=== PATIENT | male | born 1955 | race African-American/Black ===

== ENCOUNTER 2016-08-29 08:33 | Emergency (ER) | payer OTHER ==
--- NOTE | 2016-08-29 08:57 | PDOC ---
History of Present Illness - General History Source: Patient Exam Limitations: No Limitations - History of Present Illness Initial Comments: 08/29/16 10:41 The patient is a 61 year old male, with a significant past medical history of COPD on 2L of NC with permanent tracheostomy due to respiratory failure , who presents to the emergency department with suspected foreign body in his trach. The patient reports cleaning his trach with a wooden Q-tip,, when he withdrew it , he only noticed a portion of it and isnt sure where the rest of it was. The missing portion was approx 4-5 inches long. He denies any difficulties breathing. He denies any recent fevers, chills, headache or dizziness. He denies any recent nausea, vomit, diarrhea or constipation. Allergies: NKA Past surgical history: See HPI Social History: Nonsmoker. Denies EtOH use and recreational drug use. Primary Care Physician: Dr.Chumaceiro Goldberg: Dr. Alvarenga <Tam Conley - Last Filed: 08/29/16 11:43> <Isaias Beltran - Last Filed: 08/30/16 09:12> - General Chief Complaint: Foreign Body (FB) Stated Complaint: SOMETHING STUCK IN THE THROAT Time Seen by Provider: 08/29/16 08:38 Past History <Tam Conley - Last Filed: 08/29/16 11:43> - Past Medical History Anemia: No Asthma: Yes Cancer: No Cardiac Disorders: No CVA: No COPD: Yes CHF: No Dementia: No Diabetes: No Dialysis: No GI Disorders: Yes (LBO) Disorders: Yes (Prostate Enlargement) HTN: No Hypercholesterolemia: No HIV: No Kidney Stones: No Liver Disease: No Suicide Attempt (Hx): No Seizures: No Thyroid Disease: No - Surgical History Abdominal Surgery: Yes (Hernia repair,) Appendectomy: No Cardiac Surgery: No Cholecystectomy: Yes Lung Surgery: No Neurologic Surgery: No Orthopedic Surgery: Yes (R foot fracture repair) - Immunization History Immunization Up to Date: Yes - Psycho/Social/Smoking Cessation Hx Anxiety: No Suicidal Ideation: No Smoking Status: No Smoking History: Never smoked Have you smoked in the past 12 months: No Number of Cigarettes Smoked Daily: 0 Hx Alcohol Use: No Drug/Substance Use Hx: No Substance Use Type: None Hx Substance Use Treatment: No <Isaias Beltran - Last Filed: 08/30/16 09:12> - Past Medical History Allergies/Adverse Reactions: Allergies Allergy/AdvReac Type Severity Reaction Status Date / Time Fish Oil concentrate Allergy Mild Verified 08/29/16 08:38 No Known Drug Allergies Allergy Verified 08/29/16 08:38 shellfish Allergy Uncoded 08/29/16 08:38 Home Medications: Ambulatory Orders Albuterol Sulfate Inhaler - [Ventolin Hfa Inhaler -] 1 - 2 inh PO QID 08/29/16 Meloxicam 0 mg PO DAILY 08/29/16 Potassium Chloride 0 meq PO DAILY 08/29/16 Salmeterol/Fluticasone [Advair 250Mcg/50Mcg -] 1 inh IH DAILY 08/29/16 Tamsulosin HCl [Flomax] 0.4 mg PO DAILY 08/29/16 Respiratory Specific PMHX - Complaint Specific PMHX Angina: No <Isaias Beltran - Last Filed: 08/30/16 09:12> Review of Systems - Review of Systems Able to Perform ROS?: Yes Comments:: 08/29/16 10:42 CONSTITUTIONAL: No reported: Fever, Chills, Diaphoresis, Generalized Weakness, Malaise, Loss of Appetite HEENT: No reported: Rhinorrhea, Nasal Congestion, Throat Pain, Throat Swelling, Difficulty Swallowing, Mouth Swelling, Ear Pain, Eye Pain, Visual Changes CARDIOVASCULAR: No reported: Chest Pain, Syncope, Palpitations, Irregular Heart Rate, Lightheadedness, Peripheral Edema RESPIRATORY: +Cough, possible FB in trach No reported: Shortness of Breath, SOB with Exertion, Orthopnea, Wheezing, Stridor, Hemoptysis GASTROINTESTINAL: No reported: Abdominal pain, Abdominal Distension, Nausea, Vomiting, Diarrhea, Constipation, Melena, Hematochezia GENITOURINARY: No reported: Dysuria, Frequency, Urgency, Hesitancy, Flank Pain, Genital Pain MUSCULOSKELETAL: No reported: Myalgia, Arthralgia, Joint Swelling, Back pain, Neck Pain SKIN: No reported: Rash, Itching, Pallor HEMEATOLOGIC/IMMUNOLOGIC: No reported: Easy Bleeding, Easy Bruising, Lymphadenopathy, Frequent infections ENDOCRINE: No reported: Unexplained Weight Gain, Unexplained Weight Loss, Heat Intolerance, Cold Intolerance NEUROLOGIC: No reported: Headache, Focal Weakness, Paresthesias, Vertigo, Lightheadedness, Unsteady Gait, Seizure, Mental Status Changes, Incontinence PSYCHIATRIC: No reported: Anxiety, Depression <Tam Conley - Last Filed: 08/29/16 11:43> *Physical Exam - Vital Signs Last Vital Signs Temp Pulse Resp BP Pulse Ox 98.9 F 90 22 131/69 99 08/29/16 08:38 08/29/16 08:38 08/29/16 08:38 08/29/16 08:38 08/29/16 08:38 - Physical Exam Comments: 08/29/16 10:43 GENERAL: The patient is awake, alert, and fully oriented, Nontoxic - in no acute distress, obese abdomen HEAD: Normocephalic, atraumatic. EYES: extraocular movements intact, sclera anicteric, conjunctiva clear. ENT: Trach in place, no FB noted, no acute distress NECK: Normal range of motion, supple LUNGS: Breath sounds equal, clear to auscultation bilaterally. No wheezes, no rhonchi, no rales. HEART: Regular rate and rhythm, normal S1 and S2 without murmur, rub or gallop. ABDOMEN: Soft, nontender, normoactive bowel sounds. No guarding, no rebound. . No CVA tenderness EXTREMITIES: Normal range of motion, no edema. No clubbing or cyanosis. No cords , erythema, or tenderness. NEUROLOGICAL: No facial assymetry, Normal speech, PSYCH: Normal mood, normal affect. SKIN: Warm, Dry, normal turgor, <Tam Conley - Last Filed: 08/29/16 11:43> Procedures - Consent Consent obtained: Verbal - Additional Procedures Progress: 08/30/16 09:11 The patients trach was replaced with portex trach due to damage to old trach ( broken balloon and broken attachments) <Isaias Beltran - Last Filed: 08/30/16 09:12> Heart Score/ECG Review - ECG Impressions Comment:: 08/29/16 09:42 Twelve-lead EKG was performed and reviewed by me. There is normal sinus rhythm with a normal rate. Rate of 80 The axis is normal. RBBB LAFB There are no ST or T wave abnormalities. <Isaias Beltran - Last Filed: 08/30/16 09:12> ED Treatment Course - LABORATORY CBC & Chemistry Diagram: 08/29/16 09:10 08/29/16 09:10 - ADDITIONAL ORDERS Additional order review: Laboratory Results 08/29/16 08/29/16 08/29/16 09:10 09:10 09:10 INR 1.06 Sodium 141 Potassium 4.7 Chloride 101 Carbon Dioxide 35 H Anion Gap 5 L BUN 12 D Creatinine 1.0 Creat Clearance w eGFR > 60 Random Glucose 94 D Calcium 8.7 Total Bilirubin 0.3 D AST 21 ALT 19 D Alkaline Phosphatase 71 Total Protein 7.7 Albumin 3.3 L Blood Type Cancelled Antibody Screen Cancelled Spec Expiration Date Cancelled 08/29/16 09:10 RBC 4.72 MCV 93.5 MCHC 31.8 L RDW 15.7 MPV 11.1 Neutrophils % 54.9 Lymphocytes % 30.0 D Monocytes % 10.1 Eosinophils % 4.2 D Basophils % 0.8 <Tam Conley - Last Filed: 08/29/16 11:43> - LABORATORY CBC & Chemistry Diagram: 08/29/16 09:10 08/29/16 09:10 <Isaias Beltran - Last Filed: 08/30/16 09:12> Medical Decision Making - Medical Decision Making 08/29/16 08:57 61y M COPD with hx of respiratory failure with trach on 2L of NC presents with suspected FB in trach. The pt was cleaning his trach this morning when the wooden q tip he was using that he suspected may have broken off in his trach ( was cleaning and when he withdrew it it was broken). The pt endorses some increasing coughing recently but denies any cp, fever/chills. on exam pt has a trach in place, unable to see any fb in his trach. vitals normal. will obtain blood work, soft tissue neck/cxr will d/w dr. alvarenga regarding necessity of CT as pt will likely need a bronch 08/29/16 12:14 08/29/16 13:[address] negative for foreign body. Although a wooden q tip is not radio opaque, i would expect that a 3-4 inch long peice of would be uniquely identifiable. case was d/w dr. Gonzáles - agrees that if the pt is asypmtomatic, not coughing or any respiraotory distress, not hypoxic can d/c with observation at home. If pt was to have increase coughing, sob, fever/chills or other sypmtoms will hav ehim return to the ED for reevaluation and possible bronch. I discussed the physical exam findings, ancillary test results and final diagnoses with the patient. I answered all of the patient's questions. The patient was satisfied with the care received and felt comfortable with the discharge plan and treatment plan. The patient will call their primary care physician within 24 hours to arrange follow-up and will return to the Emergency Department with any new, persistent or worsening symptoms. <Isaias Beltran - Last Filed: 08/30/16 09:12> *DC/Admit/Observation/Transfer - Attestations Scribe Attestion: 08/29/16 10:44 Documentation prepared by Tam Conley, acting as medical assistant float for Isaias Beltran MD. <Tam Conley - Last Filed: 08/29/16 11:43> - Discharge Dispostion Admit: No <Isaias Beltran - Last Filed: 08/30/16 09:12> Diagnosis at time of Disposition: Tracheostomy complication Qualifiers: Tracheostomy complication: unspecified Qualified Code(s): J95.00 - Unspecified tracheostomy complication - Discharge Dispostion Disposition: HOME Condition at time of disposition: Improved - Referrals Referrals: Darrick Pastrana MD [Primary Care Provider] - - Patient Instructions Printed Discharge Instructions: How to Take Care of a Tracheostomy Additional Instructions: Return to the emergency department immediately with ANY new, persistent or worsening symptoms including any cough, shortness of breath, chest pain, fevers or other concerns. You MUST call and follow up with your doctor in 2-3 days for further evaluation of your symptoms. Results were discussed with you. Please make sure your doctor reviews the results of your emergency evaluation. Print Language: CHILEAN
[2016-08-29 08:58] VITALS: BP 131/69; PULSE 90; TEMP 98.9; BMI 45.9
[2016-08-29 09:33] LABS: BASOPHIL 0.8 % (0-2.0); EOSINOPHIL 4.2 % (0-4.5); MCH 29.7 pg (25.7-33.7); MCHC 31.8 g/dl (32.0-35.9); MEAN CELL VOLUME 93.5 fl (80-96); MEAN PLT VOLUME 11.1 fl (7.5-11.1); NEUTROPHILS 54.9 % (42.8-82.8); PLATELET COUNT 105 K/MM3 (134-434); RDW 15.7 % (11.9-15.9); WHITE BLOOD COUNT 6.8 K/mm3 (4.0-10.0)
[2016-08-29 09:47] LABS: INR 1.06 (0.82-1.09); PROTHROMBIN TIME (PATIENT) 11.7 SEC (9.98-11.88)
[2016-08-29 09:58] LABS: ALBUMIN 3.3 g/dl (3.4-5.0); ANION GAP 5 (8-16); CALCIUM 8.7 mg/dL (8.5-10.1); CO2 35 mmol/L (21-32); GLUCOSE,RANDOM 94 mg/dL (74-106); SGPT/ALT 19 U/L (12-78)
[2016-08-29 09:59] LABS: ALK PHOS 71 U/L (45-117); BILIRUBIN,TOTAL 0.3 mg/dL (0.2-1.0); TOT PROT 7.7 g/dl (6.4-8.2)
[2016-08-29 10:01] LABS: SGOT/AST 21 U/L (15-37)
--- NOTE | 2016-08-29 10:24 | EKG ---
Test Reason : Blood Pressure : / mmHG Vent. Rate : 080 BPM Atrial Rate : 080 BPM P-R Int : 154 ms QRS Dur : 110 ms QT Int : 380 ms P-R-T Axes : 059 -68 037 degrees QTc Int : 438 ms NORMAL SINUS RHYTHM RIGHT BUNDLE BRANCH BLOCK LEFT ANTERIOR FASCICULAR BLOCK BIFASCICULAR BLOCK ABNORMAL ECG WHEN COMPARED WITH ECG OF 09-MAY-2015 09:00, PREMATURE VENTRICULAR COMPLEXES ARE NO LONGER PRESENT VENT. RATE HAS INCREASED BY 29 BPM Confirmed by SEBASTIÁN BEST, CHITRA ([id number]) on 08/29/2016 10:24:01 AM Referred By: Confirmed By:CHITRA LOWERY MD
== END 2016-08-29 15:16 | disposition home or self-care (01) ==
LOC: JER 08:33
DX: J95.09 Other tracheostomy complication (principal); J96.90 Respiratory failure, unspecified, unspecified whether with hypoxia or hypercapnia; Z99.81 Dependence on supplemental oxygen
CPT/HCPCS: 36415; 71250-TC; 80053; 85025; 85610; 93005; 93010; 99283-25

== ENCOUNTER 2017-08-09 13:15 | Inpatient (IN) | payer OTHER ==
--- NOTE | 2017-08-09 13:18 | PDOC ---
History of Present Illness - General Stated Complaint: SHORTNESS OF BREATH Time Seen by Provider: 08/09/17 13:18 - History of Present Illness Initial Comments: 08/09/17 14:09 The patient is a 62 year old male with a history of CHF, COPD s/p trach due to respiratory failure who presents for evaluation of SOB. The patient reports a 1 week history of worsening SOB with productive cough associated with subjective fevers and chills prompting his presentation to the ED for further evaluation. Per EMS, the patient was suctioned multiple times with mild improvement in the patient's oxygenation. He otherwise denies fevers, chills, chest pain, nausea, vomiting, abdominal pain, or changes with urination or bowel movements. Past History - Past Medical History Allergies/Adverse Reactions: Allergies Allergy/AdvReac Type Severity Reaction Status Date / Time Fish Oil concentrate Allergy Mild Verified 08/09/17 13:40 No Known Drug Allergies Allergy Verified 08/09/17 13:40 shellfish Allergy Uncoded 08/09/17 13:40 Home Medications: Ambulatory Orders Albuterol Sulfate Inhaler - [Ventolin Hfa Inhaler -] 1 - 2 inh PO QID 08/29/16 Meloxicam 0 mg PO DAILY 08/29/16 Potassium Chloride 0 meq PO DAILY 08/29/16 Salmeterol/Fluticasone [Advair 250Mcg/50Mcg -] 1 inh IH DAILY 08/29/16 Tamsulosin HCl [Flomax] 0.4 mg PO DAILY 08/29/16 Anemia: No Asthma: Yes Cancer: No Cardiac Disorders: No CVA: No COPD: Yes CHF: No Dementia: No Diabetes: No Dialysis: No GI Disorders: Yes (LBO) Disorders: Yes (Prostate Enlargement) HTN: No Hypercholesterolemia: No Kidney Stones: No Liver Disease: No Seizures: No Thyroid Disease: No - Surgical History Abdominal Surgery: Yes (Hernia repair,) Appendectomy: No Cardiac Surgery: No Cholecystectomy: Yes Lung Surgery: No Neurologic Surgery: No Orthopedic Surgery: Yes (R foot fracture repair) - Immunization History Immunization Up to Date: Yes - Suicide/Smoking/Psychosocial Hx Smoking Status: No Smoking History: Never smoked Have you smoked in the past 12 months: No Number of Cigarettes Smoked Daily: 0 Hx Alcohol Use: No Drug/Substance Use Hx: No Substance Use Type: None Hx Substance Use Treatment: No Review of Systems - Review of Systems Comments:: 08/09/17 14:19 Constitutional: Fevers. No fatigue, malaise HEENT: No Rhinorrhea, nasal congestion, visual changes Cardiovascular: No chest pain, syncope, palpitations, lightheadedness Respiratory: SOB, Cough. No Hemoptysis, Gastrointestinal: No Abdominal pain, Nausea, Vomiting, Constipation, Diarrhea, Melena Genitourinary: No Dysuria, Frequency, Urgency, Hesitancy, Hematuria, Flank pain Musculoskeletal: No Myalgia, arthralgia Skin: No rashes, itching, bruising, pallor Neurologic: No Headache, Dizziness, Numbness, Weakness, or Tingling Psychiatric: No Hallucinations. No SI or HI *Physical Exam - Physical Exam Comments: 08/09/17 14:22 General Appearance: Nourished. In Mild Apparent Distress HEENT: EOMI, PATRICIA. No Pharyngeal Erythema, Tonsillar Exudate, Tonsillar Erythema Neck: Trachyostomy in place with purulent sputum production. No Cervical Lymphadenopathy Respiratory/Chest: Diffuse crackles auscultated on exam bilaterally. Cardiovascular: Regular Rhythm, Regular Rate. No Murmur, Gallops, Rubs Gastrointestinal/Abdominal: Normal Bowel Sounds, Soft. No Guarding, Rebound, Tenderness Musculoskeletal: No CVA Tenderness Extremity: Normal Capillary Refill Integumentary: Normal Color, Dry, Warm Neurologic: Fully Oriented, Alert, Normal Mood/Affect, Normal Response, Heart Score/ECG Review #1 ECG reviewed & interpreted by me at: 17:21 (Incomplete RBBB, Left Anterior Fasicular Block) General ECG Interpretation: Sinus Rhythm, Normal Rate, Normal Intervals, No acute ischemic changes ED Treatment Course - LABORATORY CBC & Chemistry Diagram: 08/09/17 15:00 08/09/17 15:15 Medical Decision Making - Medical Decision Making 08/09/17 14:24 The patient is a 62 year old male with a history of CHF, COPD s/p trach due to respiratory failure who presents for evaluation of SOB. Differential includes but is not limited to: Sepsis, Pneumonia, COPD Exacerbation, CHF, Infectious, Metabolic derangement. Given the patient's history and physical exam, we will obtain a cbc, cmp, lactate, vbg, troponin, bnp, ua, blood cultures, chest plain film, ekg to evaluate further for possible etiologies. We will treat with a duoneb here in the ED and the patient was placed on a trach collar with improved O2 saturations. We will continue to monitor and closely reassess. Likely admission. 08/09/17 17:04 CBC is unremarkable. CMP is unremarkable. troponin is elevated to 0.34. BNP is elevated to 209. The patient's troponin and bnp elevations are likely due to demand ischemia. Chest plain film demonstrates pulmonary congestion with a possible left lower lobe infiltrate as read by our radiologist. We discussed the case with Dr. Sen with cardiology who is aware of the case and agrees that the patient's troponin elevation is likely due to demand ischemia. We discussed the case with the hospitalist team who accepted the patient for admission. *DC/Admit/Observation/Transfer Diagnosis at time of Disposition: COPD Acute exacerbation of chronic obstructive airways disease, Chronic diastolic heart failure - Discharge Dispostion Condition at time of disposition: Stable Decision to Admit order: Yes - Referrals Referrals: Darrick Pastrana MD [Primary Care Provider] - - Patient Instructions - Post Discharge Activity
[2017-08-09] MEDS ORDERED: ALBUTEROL SO4 2.5/IPRATROPIUM 0.5 INH SOL 3 ML VIAL.NEB. NEB ONE ×3 (13:26→15:38)
--- NOTE | 2017-08-09 13:40 | PDOC ---
Attending Attestation - ED Attending Attestation I have performed the following: I have examined & evaluated the patient, The case was reviewed & discussed with the resident, I agree w/resident's findings & plan, Exceptions are as noted - HPI HPI: 08/09/17 14:14 The patient is a 62 year old male brought in by EMS, with a significant past medical history of COPD, LBO, prostate enlargement, and asthma, who presents to the emergency department for evaluation of shortness of breath. The patient reports worsening shortness of breath for 1 week. The patient has a chronic trach secondary to COPD. The patient reports a 1 week history of fever, chills , productive cough, and increased secretions. He also notes mild right upper quadrant pain. The patient states his worsening symptoms prompted him to visit the emergency department today. The patient denies chest pain, headache, nausea, vomiting, diarrhea, and constipation. Denies dysuria, frequency, urgency, and hematuria. Allergies: NKDA, Fish oil concentrate, shellfish derived products. Past surgical history: Hernia repair, Cholecystectomy. Social history: No reported cigarette, alcohol, or drug use. <Herberth Gaston - Last Filed: 08/09/17 14:14> - Resident Resident Name: Lavell Morrow - Physicial Exam PE: GENERAL: Awake, alert, and fully oriented, in no acute distress. Intermittent hacking cough. HEAD: No signs of trauma EYES: PERRLA, EOMI, sclera anicteric, conjunctiva clear ENT: Auricles normal inspection, hearing grossly normal, nares patent, oropharynx clear without exudates. Moist mucosa. Tracheostomy in place, however , with damaged piece to R side. NECK: Normal ROM, supple, no lymphadenopathy, JVD, or masses LUNGS: Good air entry B/L, with scattered rhonchi. HEART: Regular rate and rhythm, normal S1 and S2, no murmurs, rubs or gallops ABDOMEN: Soft, nontender, normoactive bowel sounds. No guarding, no rebound. No masses EXTREMITIES: Normal range of motion, no edema. No clubbing or cyanosis. No cords, erythema, or tenderness NEUROLOGICAL: Cranial nerves II through XII grossly intact. Motor and sensation intact. Able to speak when he occludes his trach. SKIN: Warm, Dry, normal turgor, no rashes or lesions noted. - Medical Decision Making Pt with suspected pna, as he has had hacking cough, purulent sputum with copious sputum production requiring more suctioning than usual. Treated with abx. Attempted to change the trach in the ED, as the current one is in poor condition, however, he requires an extra long trach, not in stock at the hospital. D/w ENT, it has to be ordered specially. Trach was temporarily secured by respiratory while awaiting a replacement. Pt counseled that he needs to have a spare at all times, as he could compromise his airway if he needs an emergent replacement and the part has to be ordered. <Becky Braun - Last Filed: 08/13/17 08:39> Attestations - Attestations Documentation prepared by Herberth Gaston, acting as medical certification specialist for Becky Braun MD. <Herberth Gaston - Last Filed: 08/09/17 14:14>
[2017-08-09] MEDS ORDERED: methylPREDNISolone NA SUCC 125 MG/2 ML VIAL IVPUSH ONE (14:51)
[2017-08-09] MEDS ORDERED: CEFTRIAXONE 1 GM in DEXTROSE 5%-WATER - 100 ML IVPB ONE (14:51)
[2017-08-09] MEDS ORDERED: AZITHROMYCIN IVPB 500 MG in DEXTROSE 5%-WATER - 250 ML IVPB ONE (14:51)
[2017-08-09] MEDS: ALBUTEROL SO4 2.5/IPRATROPIUM 0.5 INH SOL 3 ML VIAL.NEB. NEB SCH ×3 (15:05→20:01)
[2017-08-09 15:22] LABS: BASO % 0.4 % (0-2.0); EOS % 1.4 % (0-4.5); HEMATOCRIT 52.5 % (35.4-49); HEMOGLOBIN 16.7 GM/dL (11.7-16.9); LYMPH % 16.6 % (8-40); MCH 30.1 pg (25.7-33.7); MCHC 31.8 g/dl (32.0-35.9); MEAN CELL VOLUME 94.8 fl (80-96); MEAN PLT VOLUME 10.6 fl (7.5-11.1); MONO % 7.8 % (3.8-10.2); NEUT % 73.8 % (42.8-82.8); PLATELET COUNT 135 K/MM3 (134-434); RBC 5.54 M/mm3 (4.00-5.60); RDW 16.9 % (11.9-15.9); WHITE BLOOD COUNT 8.3 K/mm3 (4.0-10.0)
[2017-08-09 15:27] LABS: VENOUS PH 7.29 (7.32-7.42)
[2017-08-09 15:28] LABS: VENOUS PO2 37.9 mmHg (28-48)
[2017-08-09 15:30] LABS: VENOUS PC02 80.1 mmHg (38-52)
[2017-08-09] MEDS ORDERED: AZITHROMYCIN IVPB 250 ML IVPB ONE ×2 (15:38→16:02)
[2017-08-09] MEDS ORDERED: CEFTRIAXONE 1 GM/50 ML BAG ONE ×2 (15:38→15:39)
[2017-08-09] MEDS ORDERED: methylPREDNISolone NA SUCC 125 MG/2 ML VIAL ONE ×2 (15:38→15:39)
[2017-08-09 15:41] LABS: INR 1.09 (0.82-1.09); PROTHROMBIN TIME (PATIENT) 12.3 SEC (9.7-13.0)
[2017-08-09 15:44] LABS: ACTIVATED PTT 34.2 SECONDS (26.9-34.4)
[2017-08-09 15:52] LABS: ALBUMIN 3.4 g/dl (3.4-5.0); ALK PHOS 55 U/L (45-117); ANION GAP 7 (8-16); BILIRUBIN,TOTAL 0.9 mg/dL (0.2-1.0); BLOOD UREA NITROGEN 16 mg/dL (7-18); CALCIUM 9.4 mg/dL (8.5-10.1); CHLORIDE 95 mmol/L (98-107); CO2 36 mmol/L (21-32); CREATININE 1.1 mg/dL (0.7-1.3); GLUCOSE,RANDOM 62 mg/dL (74-106); SGPT/ALT 21 U/L (12-78); SODIUM 138 mmol/L (136-145); TOT PROT 7.9 g/dl (6.4-8.2)
[2017-08-09 15:54] LABS: N-TERMINAL BNP 203.06 pg/ml (5-125)
[2017-08-09 15:55] LABS: SGOT/AST 27 U/L (15-37)
[2017-08-09] MEDS ORDERED: ASPIRIN 81 MG CHEWABLE TABLETS PO ONE (15:59)
[2017-08-09] MEDS ORDERED: ASPIRIN 81 MG CHEWABLE TABLETS ONE (16:20)
[2017-08-09] MEDS ORDERED: FUROSEMIDE 40 MG/4 ML INJECTABLE VIAL IVPUSH ONE (16:43)
--- NOTE | 2017-08-09 16:49 | CON.CARD ---
Consult Consult Specialty:: Cardiology Referred by:: ED Reason for Consultation:: Acute on chronic hypoxic, hypercapneic respiratory failure, demand ischemia - History of Present Illness Chief Complaint: Dyspnea History of Present Illness: Patient is a 62 year old male morbidly obese with history of SUDEEP, COPD currently with chronic trach, diastolic dysfunction presents to the emergency department for evaluation of shortness of breath. The patient reports worsening shortness of breath for 1 week. The patient has a chronic trach secondary to COPD. The patient reports a 1 week history of fever, chills, productive cough, and increased secretions. Denies chest pain or dizziness. Sputum was clear without hemoptysis. - History Source History Provided By: Patient Limitations to Obtaining History: No Limitations - Past Medical History Cardio/Vascular: Yes: CAD, HTN Pulmonary: Yes: Asthma, COPD, O2 Dependent, Previously Intubated, Other ( multiple intubations for respiratory distress thus needed tracheostomy placement due difficult intuabations in past) Gastrointestinal: Yes: Constipation, Diverticulosis Renal/: Yes: Other (BPH) Dermatology: No: Basal Cell, Cellulitis, Eczema, Melanoma, Psoriasis, Squamous Cell, Other - Past Surgical History Past Surgical History: Yes: Cholecystectomy, Hernia Repair - Alcohol/Substance Use Hx Alcohol Use: No History of Substance Use: reports: None - Smoking History Smoking history: Never smoked Have you smoked in the past 12 months: No Aproximately how many cigarettes per day: 0 - Social History ADL: Family Assistance History of Recent Travel: No Home Medications - Allergies Allergies/Adverse Reactions: Allergies Allergy/AdvReac Type Severity Reaction Status Date / Time Fish Oil concentrate Allergy Mild Verified 08/09/17 13:40 No Known Drug Allergies Allergy Verified 08/09/17 13:40 shellfish Allergy Uncoded 08/09/17 13:40 - Home Medications Home Medications: Ambulatory Orders Albuterol Sulfate Inhaler - [Ventolin Hfa Inhaler -] 1 - 2 inh PO QID 08/29/16 Meloxicam 0 mg PO DAILY 08/29/16 Potassium Chloride 0 meq PO DAILY 08/29/16 Salmeterol/Fluticasone [Advair 250Mcg/50Mcg -] 1 inh IH DAILY 08/29/16 Tamsulosin HCl [Flomax] 0.4 mg PO DAILY 08/29/16 Review of Systems - Review of Systems Respiratory: reports: Cough, SOB, Wheezing Vital Signs: Vital Signs Temperature 98.9 F 08/09/17 13:15 Pulse Rate 75 08/09/17 13:15 Respiratory Rate 16 08/09/17 13:15 Blood Pressure 147/87 08/09/17 13:15 O2 Sat by Pulse Oximetry (%) 83 L 08/09/17 13:15 Constitutional: Yes: No Distress, Calm Neck: Yes: Other (Tracheostomy) Respiratory: Yes: Cough, Diminished, Wheezes Gastrointestinal: Yes: Normal Bowel Sounds, Soft, Abdomen, Obese Cardiovascular: Yes: Regular Rate and Rhythm JVD: No Carotid Bruit: No Heart Sounds: Yes: S1, S2 Edema: No - Other Data Labs, Other Data: CBC, BMP 08/09/17 15:00 08/09/17 15:15 INR, PTT INR 1.09 (0.82-1.09) 08/09/17 15:15 Troponin, BNP 08/09/17 08/09/17 15:15 15:15 Troponin I 0.34 H D B-Natriuretic Peptide 203.06 H Cancelled Troponin, BNP 08/09/17 08/09/17 15:15 15:15 Troponin I 0.34 H D B-Natriuretic Peptide 203.06 H Cancelled Imaging - Results Chest X-ray: Report Reviewed (Congestion with left base infiltrate or atelectasis) Problem List - Problems (1) Demand ischemia Code(s): I24.8 - OTHER FORMS OF ACUTE ISCHEMIC HEART DISEASE (2) Acute on chronic respiratory failure with hypoxia and hypercapnia Code(s): J96.21 - ACUTE AND CHRONIC RESPIRATORY FAILURE WITH HYPOXIA; J96.22 - ACUTE AND CHRONIC RESPIRATORY FAILURE WITH HYPERCAPNIA (3) COPD Acute exacerbation of chronic obstructive airways disease Code(s): J44.1 - CHRONIC OBSTRUCTIVE PULMONARY DISEASE W (ACUTE) EXACERBATION (4) CAD (coronary artery disease) Code(s): I25.10 - ATHSCL HEART DISEASE OF [place] CORONARY ARTERY W/O ANG PCTRS Qualifiers: Coronary Disease-Associated Artery/Lesion type: [place] artery [place] vs. transplanted heart: [place] heart Associated angina: without angina Qualified Code(s): I25.10 - Atherosclerotic heart disease of [place] coronary artery without angina pectoris (5) Chronic diastolic heart failure Code(s): I50.32 - CHRONIC DIASTOLIC (CONGESTIVE) HEART FAILURE (6) History of tracheostomy Code(s): Z98.89 - OTHER SPECIFIED POSTPROCEDURAL STATES * DO NOT USE * (7) Obstructive sleep apnea Code(s): G47.33 - OBSTRUCTIVE SLEEP APNEA (ADULT) (PEDIATRIC) Assessment/Plan May 09, 2015 Normal LV size and fxn, mild cLVH, cannot assess valvular pathologies due to poor echo windows 1. Acute on chronic hypoxic, hypercapenic respiratory failure with COPD exacerbation and left base PNA 2. SUDEEP with chronic tracheostomy 3. HTN 4. Diastolic dysfunction 5. Morbid obesity 6. Demand ischemia PLAN: 1. F/u trops to monitor peak 2. BD, abx, steroids, O2 to keep saO2>90%, rest on vent nightly, diuresos as needed 3. Thank you for consultative opportunity
--- NOTE | 2017-08-09 17:45 | PN ---
Teaching Attending Note Name of Resident: Elvin Robertson ATTENDING PHYSICIAN STATEMENT I saw and evaluated the patient. I reviewed the resident's note and discussed the case with the resident. I agree with the resident's findings and plan as documented. SUBJECTIVE: Patient is a 62yo male with hx of tracheo. PRESENTED WITH SHORTNESS OF BREATH AND RIGHT. OBJECTIVE: Vital Signs Temperature 98.9 F 08/09/17 13:15 Pulse Rate 75 08/09/17 13:15 Respiratory Rate 16 08/09/17 13:15 Blood Pressure 147/87 08/09/17 13:15 O2 Sat by Pulse Oximetry (%) 83 L 08/09/17 13:15 CBCD WBC 8.3 K/mm3 (4.0-10.0) 08/09/17 15:00 RBC 5.54 M/mm3 (4.00-5.60) 08/09/17 15:00 Hgb 16.7 GM/dL (11.7-16.9) D 08/09/17 15:00 Hct 52.5 % (35.4-49) H D 08/09/17 15:00 MCV 94.8 fl (80-96) 08/09/17 15:00 MCHC 31.8 g/dl (32.0-35.9) L 08/09/17 15:00 RDW 16.9 % (11.9-15.9) H 08/09/17 15:00 Plt Count 135 K/MM3 (134-434) D 08/09/17 15:00 MPV 10.6 fl (7.5-11.1) 08/09/17 15:00 CMP Sodium 138 mmol/L (136-145) 08/09/17 15:15 Potassium 5.0 mmol/L (3.5-5.1) 08/09/17 15:15 Chloride 95 mmol/L (98-107) L 08/09/17 15:15 Carbon Dioxide 36 mmol/L (21-32) H 08/09/17 15:15 Anion Gap 7 (8-16) L 08/09/17 15:15 BUN 16 mg/dL (7-18) D 08/09/17 15:15 Creatinine 1.1 mg/dL (0.7-1.3) 08/09/17 15:15 Creat Clearance w eGFR > 60 (>60) 08/09/17 15:15 Random Glucose 62 mg/dL (74-106) L D 08/09/17 15:15 Calcium 9.4 mg/dL (8.5-10.1) 08/09/17 15:15 Total Bilirubin 0.9 mg/dL (0.2-1.0) D 08/09/17 15:15 AST 27 U/L (15-37) D 08/09/17 15:15 ALT 21 U/L (12-78) 08/09/17 15:15 Alkaline Phosphatase 55 U/L (45-117) D 08/09/17 15:15 Total Protein 7.9 g/dl (6.4-8.2) 08/09/17 15:15 Albumin 3.4 g/dl (3.4-5.0) 08/09/17 15:15 CARDIAC ENZYMES Troponin I 0.34 ng/ml (0.00-0.05) H D 08/09/17 15:15 Current Medications Generic Name Dose Route Start Last Admin Trade Name Mega PRN Reason Stop Dose Admin Albuterol/Ipratropium 1 amp 08/09/17 15:00 08/09/17 15:05 Duoneb - NEB 08/10/17 03:01 1 amp Q4H ABEL Administration PE: PER RESIDENT'S NOTE CHEST: decreased BS BL, positive for trach.collar Abdomen: RLQ tenderness, BS positive, large abdomen ASSESSMENT AND PLAN: Patient is a 59 year old male with morbid obesity, SUDEEP, COPD, Trach who presents with diarrhea x 2 days , no fever or chills, positive for cough. Abdominal pain for over 1 year with worsening pain the past 2 days # Acute abdominal pain , DDx: appendicitis, adhesions with multiple abdominal surgical scars , C-diff colitis, patient was on Levaquin a week ago, and now presents with diarrhea , stool for cdiff. will start the patient on IV Rocephin and IV flagyl, ordered abdominal CT without contrast , septic w/u ,surgical consult discussed with # Acute COPD/chf diastolic exacerbation Pulmonary consult . nebulizer tx, Solumedrol IV 40mg q6h, Rocephin IV , echo for am #tracheostomy with Fi02 40% tracheo collar # Hx of HTN continue Lasix 40mg # Morbid Obesity DVT Px: heparin
--- NOTE | 2017-08-09 17:45 | HP ---
CHIEF COMPLAINT: SOB PCP: Dr. Pastrana; Cardio Dr. Caballero; Pulm Dr. Alvarenga HISTORY OF PRESENT ILLNESS: 62 y/o M w/PMH of COPD s/p tracheostomy (on 2L home O2), CHF, BPH, asthma presents to the ER with 1 week of worsening SOB, cough w/increased yellow sputum production, and subjective fevers w/diaphoresis. Pt also c/o chest tightness that is non-radiating. He noticed he has been having worsening dyspnea on exertion over this last 1 week as well. He also c/o some edema in LE which is unusual for him. Denies sick contacts or recent travel. He also c/o R sided abd pain for 1 week with diarrhea. Over the last 2 days diarrhea has become watery. He was on 1 week of levaquin 1 month ago for URI. He denies any abx use since then. No change in diet over this period of time. Denies urinary symptoms, blood in stool, EDWARDS. Is ambulatory at baseline and comes from home and lives alone. ER course was notable for: (1) Duonebs, ASA, azithro, ceftriaxone, lasix, solumedrol (2) CXR, EKG (3) Recent Travel: denies PAST MEDICAL HISTORY: COPD s/p tracheostomy, CHF, BPH, asthma PAST SURGICAL HISTORY: Tracheostomy 2007, cholecystectomy, sternum repair, R foot fracture repair Social History: Smoking: denies Alcohol: denies Drugs: denies Family History: n-c Allergies Fish Oil concentrate Allergy (Mild, Verified 08/09/17 13:40) PT COULD NOT PROVIDE FURTHER INFO. No Known Drug Allergies Allergy (Verified 08/09/17 13:40) shellfish Allergy (Uncoded 08/09/17 13:40) HOME MEDICATIONS: Home Medications Medication Instructions Recorded Albuterol Sulfate Inhaler - 1 - 2 inh PO QID 08/29/16 [Ventolin Hfa Inhaler -] Meloxicam 0 mg PO DAILY 08/29/16 Potassium Chloride 0 meq PO DAILY 08/29/16 Salmeterol/Fluticasone [Advair 1 inh IH DAILY 08/29/16 250Mcg/50Mcg -] Tamsulosin HCl [Flomax] 0.4 mg PO DAILY 08/29/16 REVIEW OF SYSTEMS CONSTITUTIONAL: +fever, diaphoresis CARDIOVASCULAR: +chest tightness, heart racing, peripheral edema RESPIRATORY: +cough with increased sputum, yellow in color, dyspnea on exertion , SOB, wheezing Absent: hemoptysis GASTROINTESTINAL: +abd pain, diarrhea Absent: melena, hematochezia GENITOURINARY: Absent: dysuria, frequency NEUROLOGIC: Absent: headache PHYSICAL EXAMINATION Vital Signs - 24 hr 08/09/17 13:15 Temperature 98.9 F Pulse Rate 75 Respiratory 16 Rate Blood Pressure 147/87 O2 Sat by Pulse 83 L Oximetry (%) GENERAL: Awake, alert, and fully oriented, unable to finish complete sentences due to SOB and tracheostomy. HEAD: NC/AT EYES: Pupils equal, round and reactive to light, extraocular movements intact, sclera anicteric. EARS, NOSE, THROAT: Ears normal, nares patent LUNGS: B/L rales HEART: Regular rate and rhythm, normal S1 and S2 without murmur ABDOMEN: Obese, RUQ and RLQ tender to palpation with light palpation. Normoactive BS. LOWER EXTREMITIES: warm, well-perfused. No calf tenderness. Trace pitting edema. PSYCHIATRIC: Cooperative. Good eye contact. Appropriate mood and affect. SKIN: Warm, dry Laboratory Results - last 24 hr 08/09/17 08/09/17 08/09/17 15:00 15:15 15:15 WBC 8.3 RBC 5.54 Hgb 16.7 D Hct 52.5 H D MCV 94.8 MCH 30.1 MCHC 31.8 L RDW 16.9 H Plt Count 135 D MPV 10.6 Absolute Neuts (auto) 6.2 Neutrophils % 73.8 D Lymphocytes % 16.6 D Monocytes % 7.8 Eosinophils % 1.4 Basophils % 0.4 Nucleated RBC % 0 PT with INR 12.30 INR 1.09 PTT (Actin FS) 34.2 D VBG pH 7.29 L POC VBG pCO2 80.1 H* POC VBG pO2 37.9 D Mixed VBG HCO3 37.3 H Sodium Potassium Chloride Carbon Dioxide Anion Gap BUN Creatinine Creat Clearance w eGFR Random Glucose Lactic Acid Calcium Total Bilirubin AST ALT Alkaline Phosphatase Troponin I B-Natriuretic Peptide Total Protein Albumin 08/09/17 08/09/17 08/09/17 15:15 15:15 15:15 WBC RBC Hgb Hct MCV MCH MCHC RDW Plt Count MPV Absolute Neuts (auto) Neutrophils % Lymphocytes % Monocytes % Eosinophils % Basophils % Nucleated RBC % PT with INR INR PTT (Actin FS) VBG pH POC VBG pCO2 POC VBG pO2 Mixed VBG HCO3 Sodium 138 Potassium 5.0 Chloride 95 L Carbon Dioxide 36 H Anion Gap 7 L BUN 16 D Creatinine 1.1 Creat Clearance w eGFR > 60 Random Glucose 62 L D Lactic Acid 1.3 Calcium 9.4 Total Bilirubin 0.9 D AST 27 D ALT 21 Alkaline Phosphatase 55 D Troponin I 0.34 H D B-Natriuretic Peptide 203.06 H Total Protein 7.9 Albumin 3.4 08/09/17 15:15 WBC RBC Hgb Hct MCV MCH MCHC RDW Plt Count MPV Absolute Neuts (auto) Neutrophils % Lymphocytes % Monocytes % Eosinophils % Basophils % Nucleated RBC % PT with INR INR PTT (Actin FS) VBG pH POC VBG pCO2 POC VBG pO2 Mixed VBG HCO3 Sodium Potassium Chloride Carbon Dioxide Anion Gap BUN Creatinine Creat Clearance w eGFR Random Glucose Lactic Acid Calcium Total Bilirubin AST ALT Alkaline Phosphatase Troponin I B-Natriuretic Peptide Cancelled Total Protein Albumin Imaging: CXR: 08/09/17: Congestive changes with possible L base infiltrate or atelectasis w /fluid EKG: NSR w/sinus arrhythmia. Incomplete RBBB. Vent Rate 75. QTc 433 ms. Active Medications Acetaminophen (Tylenol -) 650 mg PO Q6H PRN PRN Reason: PAIN OR FEVER Albuterol/Ipratropium (Duoneb -) 1 amp NEB Q4H [facility] Stop: 08/10/17 03:01 Last Admin: 08/09/17 15:05 Dose: 1 amp Albuterol/Ipratropium (Duoneb -) 1 amp NEB RQID ABEL Furosemide (Lasix Injection -) 40 mg IVPUSH DAILY [facility] Heparin Sodium (Porcine) (Heparin -) 5,000 unit SQ TID ABEL Ceftriaxone Sodium 1 gm/ (Dextrose) 50 mls @ 100 mls/hr IVPB DAILY [facility] Metronidazole (Flagyl 500mg Premixed Ivpb -) 500 mg in 100 mls @ 100 mls/hr IVPB Q8H-IV ABEL Methylprednisolone Sodium Succinate (Solu-Medrol -) 40 mg IVPB Q6H [facility] ASSESSMENT/PLAN: 62 y/o M w/PMH of COPD s/p tracheostomy (on 2L home O2), CHF, BPH, asthma presents to the ER with 1 week of worsening SOB, cough w/increased yellow sputum production, and subjective fevers w/diaphoresis. Admitted for SOB secondary to likely PNA w/superimposed COPD exacerbation and CHF exacerbation. -SOB secondary to likely PNA w/superimposed COPD exacerbation and CHF exacerbation -O2 supplementation to keep O2 sat above 90% -Solumedrol 40 mg q6h -Duonebs -Ceftriaxone 1g IV qd -Echo -Lasix 40 mg IV qd -Pulm consult (Dr. Alvarenga) -tylenol 650 mg po q6h for fever or pain -Acute abd -r/o C diff colitis, acute appendix -pt w/recent abx use (levaquin) -will test for C. Diff -will treat for C. Diff at this time w/flagyl -pt w/exquisitely tender R side of abd -will get non-contrast abd/pelvis CT -NPO except for meds -Surgery consult (Dr. Tapia) -contact precautions for C. Diff -Elevated trops -likely secondary to demand ischemia from hypoxia -EKG with no ST segment changes -trend trops to peak -cardio consulted -DVT ppx -Heparin 5000 units q8h -FEN -no fluids for now w/CHF exacerbation -Monitor electrolytes -NPO -Dispo: Admit to tele Visit type - Emergency Visit Emergency Visit: Yes Care time: The patient presented to the Emergency Department on the above date and was hospitalized for further evaluation of their emergent condition. - New Patient This patient is new to me today: Yes Date on this admission: 08/09/17 - Critical Care Critical Care patient: No Hospitalist Screening - Colonoscopy Questionnaire Colonoscopy Questionnaire: Colonoscopy Questionnaire - Patient: 50 - 75 years old and never had a screening colonoscopy: No History of colon or rectal polyps, or CA: No History of IBD, Crohn's disease or UC: No History of abdominal radiation therapy as a child: No - Relative: 1 with colon or rectal CA, or polyps at age 60 or younger: Unknown Colon or rectal CA diagnosed at age 45 or younger: Unknown Multiple relatives with colon or rectal CA: Unknown - Outcome: Screening Result: Negative Screen
[2017-08-09] MEDS ORDERED: ACETAMINOPHEN 325 MG TABLET (FP) PO PRN (17:47)
[2017-08-09] MEDS ORDERED: VANCOMYCIN 250 MG/5 ML ORAL SOLUTION PO SCH (18:00)
[2017-08-09 19:41] LABS: URINE APPEARANCE CLEAR; URINE BILIRUBIN NEGATIVE (<2.0 mg/dL); URINE BLOOD NEGATIVE (NEGATIVE); URINE COLOR AMBER; URINE GLUCOSE (UA) NEGATIVE (NEGATIVE); URINE KETONE 1+ (NEGATIVE); URINE LEUK ESTERASE NEGATIVE (NEGATIVE); URINE NITRITE NEGATIVE (NEGATIVE)
[2017-08-09 19:44] LABS: URINE PROTEIN 1+ (NEGATIVE)
[2017-08-09 19:52] LABS: EPI CELLS RARE /HPF (FEW); URINE HYALINE CAST 1 /lpf; URINE MUCUS FEW
[2017-08-09] MEDS ORDERED: FUROSEMIDE 40 MG/4 ML INJECTABLE VIAL ONE (20:05)
--- NOTE | 2017-08-09 21:43 | CONSULT ---
Consult Consult Specialty:: Surgery Reason for Consultation:: Abdominal pain - History of Present Illness Chief Complaint: Patient, 62 year old man, with severe Copd, s/p tracheostomy, obesity, c/o chronic abdominal pain, exacerbated in last 2 days. no nausea, no vomiting. - History Source History Provided By: Patient Limitations to Obtaining History: No Limitations - Past Medical History Cardio/Vascular: Yes: CAD, HTN Pulmonary: Yes: Asthma, COPD, O2 Dependent, Previously Intubated, Pulmonary Embolus, Other (multiple intubations for respiratory distress thus needed tracheostomy placement due difficult intuabations in past) Gastrointestinal: Yes: Constipation, Diverticulosis Renal/: Yes: Other (BPH) Dermatology: No: Basal Cell, Cellulitis, Eczema, Melanoma, Psoriasis, Squamous Cell, Other - Past Surgical History Past Surgical History: Yes: Cholecystectomy, Hernia Repair - Alcohol/Substance Use Hx Alcohol Use: No History of Substance Use: reports: None - Smoking History Smoking history: Never smoked Have you smoked in the past 12 months: No Aproximately how many cigarettes per day: 0 - Social History ADL: Family Assistance History of Recent Travel: No Home Medications - Allergies Allergies/Adverse Reactions: Allergies Allergy/AdvReac Type Severity Reaction Status Date / Time Fish Oil concentrate Allergy Mild Verified 08/09/17 13:40 No Known Drug Allergies Allergy Verified 08/09/17 13:40 shellfish Allergy Uncoded 08/09/17 13:40 - Home Medications Home Medications: Ambulatory Orders Albuterol Sulfate Inhaler - [Ventolin Hfa Inhaler -] 1 - 2 inh PO QID 08/29/16 Meloxicam 0 mg PO DAILY 08/29/16 Potassium Chloride 0 meq PO DAILY 08/29/16 Salmeterol/Fluticasone [Advair 250Mcg/50Mcg -] 1 inh IH DAILY 08/29/16 Tamsulosin HCl [Flomax] 0.4 mg PO DAILY 08/29/16 Review of Systems - Review of Systems Gastrointestinal: reports: Diarrhea Physical Exam Vital Signs: Vital Signs Temperature 98.9 F 08/09/17 13:15 Pulse Rate 83 08/09/17 19:56 Respiratory Rate 29 H 08/09/17 19:57 Blood Pressure 115/83 08/09/17 19:56 O2 Sat by Pulse Oximetry (%) 98 08/09/17 19:56 Labs: CBC, BMP 08/09/17 15:00 06/08/18 15:15 Imaging - Results Cat Scan: Report Reviewed, Image Reviewed Problem List - Problems (1) Abdominal pain Code(s): R10.9 - UNSPECIFIED ABDOMINAL PAIN Qualifiers: Abdominal location: unspecified location Qualified Code(s): R10.9 - Unspecified abdominal pain (2) Diarrhea Code(s): R19.7 - DIARRHEA, UNSPECIFIED Qualifiers: Diarrhea type: unspecified type Qualified Code(s): R19.7 - Diarrhea, unspecified (3) Acute on chronic respiratory failure with hypoxia and hypercapnia Code(s): J96.21 - ACUTE AND CHRONIC RESPIRATORY FAILURE WITH HYPOXIA; J96.22 - ACUTE AND CHRONIC RESPIRATORY FAILURE WITH HYPERCAPNIA (4) Chronic respiratory failure with hypoxia Code(s): J96.11 - CHRONIC RESPIRATORY FAILURE WITH HYPOXIA (5) Morbid obesity with BMI of 45.0-49.9, adult Code(s): Z68.42 - BODY MASS INDEX (BMI) 45.0-49.9, ADULT (6) CAD (coronary artery disease) Code(s): I25.10 - ATHSCL HEART DISEASE OF [place] CORONARY ARTERY W/O ANG PCTRS Qualifiers: Coronary Disease-Associated Artery/Lesion type: [place] artery [place] vs. transplanted heart: [place] heart Associated angina: without angina Qualified Code(s): I25.10 - Atherosclerotic heart disease of [place] coronary artery without angina pectoris Assessment/Plan Nonspecific abdominal pain, may be related to Copd. Stool for culture to rule out infectious diarrhea. normal abdominal Ct scan and labs.
[2017-08-09] MEDS: HEPARIN NA (PORCINE) 5,000 UNITS/ML 1ML VIAL SQ SCH (22:23)
[2017-08-09] MEDS: methylPREDNISolone NA SUCC 125 MG/2 ML VIAL IVPB SCH (22:23)
[2017-08-09] MEDS ORDERED: methylPREDNISolone NA SUCC 40 MG/1 ML VIAL ONE (22:38)
[2017-08-09] MEDS ORDERED: HEPARIN NA (PORCINE) 5,000 UNITS/ML 1ML VIAL ONE (22:38)
[2017-08-10] MEDS: methylPREDNISolone NA SUCC 125 MG/2 ML VIAL IVPB SCH ×4 (03:05→21:55)
[2017-08-10 04:44] VITALS: BMI 47.9
[2017-08-10] MEDS: HEPARIN NA (PORCINE) 5,000 UNITS/ML 1ML VIAL SQ SCH ×3 (06:14→21:54)
[2017-08-10 07:20] LABS: BASO % 0.1 % (0-2.0); HEMATOCRIT 47.6 % (35.4-49); HEMOGLOBIN 15.4 GM/dL (11.7-16.9); LYMPH % 13.9 % (8-40); MCH 30.9 pg (25.7-33.7); MCHC 32.4 g/dl (32.0-35.9); MEAN CELL VOLUME 95.3 fl (80-96); MEAN PLT VOLUME 10.5 fl (7.5-11.1); MONO % 0.7 % (3.8-10.2); NEUT % 85.3 % (42.8-82.8); PLATELET COUNT 107 K/MM3 (134-434); RBC 4.99 M/mm3 (4.00-5.60)
[2017-08-10 08:22] LABS: CHLORIDE 94 mmol/L (98-107); POTASSIUM 4.9 mmol/L (3.5-5.1); SODIUM 137 mmol/L (136-145)
[2017-08-10 08:43] LABS: ALBUMIN 3.3 g/dl (3.4-5.0); ALK PHOS 52 U/L (45-117); ANION GAP 7 (8-16); BILIRUBIN,TOTAL 0.6 mg/dL (0.2-1.0); BLOOD UREA NITROGEN 21 mg/dL (7-18); CALCIUM 8.4 mg/dL (8.5-10.1); CO2 36 mmol/L (21-32); CREATININE 1.2 mg/dL (0.7-1.3); GLUCOSE,RANDOM 103 mg/dL (74-106); MAGNESIUM 2.3 mg/dL (1.8-2.4); SGOT/AST 21 U/L (15-37); SGPT/ALT 18 U/L (12-78); TOT PROT 7.5 g/dl (6.4-8.2)
--- NOTE | 2017-08-10 09:35 | PN ---
Physical Exam: SUBJECTIVE: Patient seen and examined Patient is feeling better, less abdominal pain, as per patient has a chronic abdominal pain over 6 months. OBJECTIVE: Vital Signs Temperature 98 F 08/10/17 06:00 Pulse Rate 62 08/10/17 06:00 Respiratory Rate 20 08/10/17 06:00 Blood Pressure 130/73 08/10/17 06:00 O2 Sat by Pulse Oximetry (%) 92 L 08/09/17 23:51 GENERAL: The patient is awake, alert, and fully oriented, in no acute distress. HEAD: Normal with no signs of trauma. EYES: PERRL, extraocular movements intact, sclera anicteric, conjunctiva clear. ENT: Ears normal, oropharynx clear without exudates, moist mucous membranes. positive for tracheostomy with trach collar with fio2 of 40% NECK: Trachea midline, full range of motion, supple. LUNGS: decreased BS bl, no wheezes, no crackles, no accessory muscle use. HEART: Regular rate and rhythm, S1, S2 without murmur, rub or gallop. ABDOMEN: Soft, mild tenderness of RLQ , large abdomen, nondistended, normoactive bowel sounds, no guarding, no rebound, no hepatosplenomegaly, no masses appreciated. EXTREMITIES: 2+ pulses, warm, well-perfused, no edema. NEUROLOGICAL: Cranial nerves II through XII grossly intact. Normal speech, gait is stable PSYCH: Normal mood, normal affect. SKIN: Warm, dry, normal turgor, no rashes or lesions noted CBCD WBC 4.0 K/mm3 (4.0-10.0) D 08/10/17 05:30 RBC 4.99 M/mm3 (4.00-5.60) 08/10/17 05:30 Hgb 15.4 GM/dL (11.7-16.9) 08/10/17 05:30 Hct 47.6 % (35.4-49) 08/10/17 05:30 MCV 95.3 fl (80-96) 08/10/17 05:30 MCHC 32.4 g/dl (32.0-35.9) 08/10/17 05:30 RDW 16.0 % (11.9-15.9) H 08/10/17 05:30 Plt Count 107 K/MM3 (134-434) L D 08/10/17 05:30 MPV 10.5 fl (7.5-11.1) 08/10/17 05:30 CMP Sodium 137 mmol/L (136-145) 08/10/17 05:30 Potassium 4.9 mmol/L (3.5-5.1) 08/10/17 05:30 Chloride 94 mmol/L (98-107) L 08/10/17 05:30 Carbon Dioxide 36 mmol/L (21-32) H 08/10/17 05:30 Anion Gap 7 (8-16) L 08/10/17 05:30 BUN 21 mg/dL (7-18) H D 08/10/17 05:30 Creatinine 1.2 mg/dL (0.7-1.3) 08/10/17 05:30 Creat Clearance w eGFR > 60 (>60) 08/10/17 05:30 Random Glucose 103 mg/dL (74-106) D 08/10/17 05:30 Calcium 8.4 mg/dL (8.5-10.1) L 08/10/17 05:30 Total Bilirubin 0.6 mg/dL (0.2-1.0) D 08/10/17 05:30 AST 21 U/L (15-37) D 08/10/17 05:30 ALT 18 U/L (12-78) 08/10/17 05:30 Alkaline Phosphatase 52 U/L (45-117) 08/10/17 05:30 Total Protein 7.5 g/dl (6.4-8.2) 08/10/17 05:30 Albumin 3.3 g/dl (3.4-5.0) L 08/10/17 05:30 CARDIAC ENZYMES Creatine Kinase 417 IU/L (39-308) H 08/10/17 05:30 Troponin I 0.35 ng/ml (0.00-0.05) H 08/10/17 05:30 Active Medications Generic Name Dose Route Start Last Admin Trade Name Freq PRN Reason Stop Dose Admin Acetaminophen 650 mg 08/09/17 17:47 Tylenol - PO Q6H PRN PAIN OR FEVER Albuterol/Ipratropium 1 amp 08/09/17 20:00 08/09/17 20:01 Duoneb - NEB 1 amp RQID ABEL Administration Furosemide 40 mg 08/10/17 10:00 Lasix Injection - IVPUSH DAILY [facility] Heparin Sodium (Porcine) 5,000 unit 08/09/17 22:00 08/10/17 06:14 Heparin - SQ 5,000 unit TID ABEL Administration Ceftriaxone Sodium 1 gm/ 50 mls @ 100 mls/hr 08/10/17 10:00 Dextrose IVPB DAILY [facility] Metronidazole 500 mg in 100 mls @ 100 mls/hr 08/09/17 18:00 08/10/17 02:51 Flagyl 500mg Premixed Ivpb - IVPB 100 mls/hr Q8H-IV ABEL Administration Methylprednisolone Sodium Succinate 40 mg 08/09/17 22:00 08/10/17 03:05 Solu-Medrol - IVPB 40 mg Q6H ABEL Administration Home Medications Medication Instructions Recorded Albuterol Sulfate Inhaler - 1 - 2 inh PO QID 08/29/16 [Ventolin Hfa Inhaler -] Meloxicam 0 mg PO DAILY 08/29/16 Potassium Chloride 0 meq PO DAILY 08/29/16 Salmeterol/Fluticasone [Advair 1 inh IH DAILY 08/29/16 250Mcg/50Mcg -] Tamsulosin HCl [Flomax] 0.4 mg PO DAILY 08/29/16 CT Abdomen: as per report; No evidence of acute pathology ASSESSMENT/PLAN: Patient is a 59 year old male with morbid obesity, SUDEEP, COPD, Trach who presents with diarrhea x 2 days , no fever or chills, positive for cough. Abdominal pain for over 1 year with worsening pain the past 2 days # Acute COPD/chf diastolic exacerbation Pulmonary consult . nebulizer tx, Solumedrol IV 40mg q6h, Rocephin IV and Flagyl continue, echo for am pulmonary on the case. # Acute abdominal pain , CT of abdomen without contrast ; no acute pathology , as per to repeat CT of abdomen with contrast oral , no appendicitis clinically and patient had this pain for over 6 months , possible with adhesions with multiple abdominal surgical scars , C-diff colitis; culture is negative for cdiff and patient is having less diarrhea today . continue IV Rocephin and flagyl, ordered abdominal CT with contrast , septic w/u ,surgical consult discussed with. #tracheostomy with Fi02 40% tracheo collar # Hx of HTN continue Lasix 40mg DVT Px: heparin as per to get Ct of abdomen with oral contrast to assess further Visit type - Emergency Visit Emergency Visit: Yes ED Registration Date: 08/09/17 Care time: The patient presented to the Emergency Department on the above date and was hospitalized for further evaluation of their emergent condition. - New Patient This patient is new to me today: No - Critical Care Critical Care patient: No - Discharge Referral Referred to [facility] Med P.C[facility] No
[2017-08-10] MEDS ORDERED: CEFTRIAXONE 1 GM in DEXTROSE 5%-WATER - 50 ML IVPB SCH (10:00)
[2017-08-10] MEDS ORDERED: cefTRIAXone SODIUM 1 GM VIAL ONE (10:06)
[2017-08-10] MEDS: FUROSEMIDE 40 MG/4 ML INJECTABLE VIAL IVPUSH SCH (10:21)
[2017-08-10] MEDS: ALBUTEROL SO4 2.5/IPRATROPIUM 0.5 INH SOL 3 ML VIAL.NEB. NEB SCH ×4 (11:51→20:50)
--- NOTE | 2017-08-10 13:16 | CON.PULM ---
Consult Consult Specialty:: PULM/CCM Referred by:: MEHUL Reason for Consultation:: SOB - History of Present Illness Chief Complaint: SOB History of Present Illness: 62 M, COPD s/p tracheostomy (on 24 hour home O2), CHF, BPH, OSAS, and asthma. Admitted via the ER due to 1 week of worsening SOB and cough of productive yellow sputum. Intermittent slightly blood tinged sputum, but no gross hemoptysis. No travel history or sick contacts. Reports being on Levaquin for 1 week about 1 month ago. - History Source History Provided By: Patient Limitations to Obtaining History: No Limitations - Past Medical History Cardio/Vascular: Yes: CAD, HTN Pulmonary: Yes: Asthma, COPD, O2 Dependent, Previously Intubated, Pulmonary Embolus, Other (multiple intubations for respiratory distress thus needed tracheostomy placement due difficult intuabations in past) Gastrointestinal: Yes: Constipation, Diverticulosis Renal/: Yes: Other (BPH) Dermatology: No: Basal Cell, Cellulitis, Eczema, Melanoma, Psoriasis, Squamous Cell, Other - Past Surgical History Past Surgical History: Yes: Cholecystectomy, Hernia Repair - Alcohol/Substance Use Hx Alcohol Use: No History of Substance Use: reports: None - Smoking History Smoking history: Never smoked Have you smoked in the past 12 months: No Aproximately how many cigarettes per day: 0 - Social History ADL: Family Assistance History of Recent Travel: No Home Medications - Allergies Allergies/Adverse Reactions: Allergies Allergy/AdvReac Type Severity Reaction Status Date / Time Fish Oil concentrate Allergy Mild Verified 08/09/17 13:40 No Known Drug Allergies Allergy Verified 08/09/17 13:40 shellfish Allergy Uncoded 08/09/17 13:40 - Home Medications Home Medications: Ambulatory Orders Albuterol Sulfate Inhaler - [Ventolin Hfa Inhaler -] 1 - 2 inh PO QID 08/29/16 Meloxicam 0 mg PO DAILY 08/29/16 Potassium Chloride 0 meq PO DAILY 08/29/16 Salmeterol/Fluticasone [Advair 250Mcg/50Mcg -] 1 inh IH DAILY 08/29/16 Tamsulosin HCl [Flomax] 0.4 mg PO DAILY 08/29/16 Review of Systems - Review of Systems Constitutional: reports: Malaise. denies: Chills, Fever, Night Sweats, Unintentional Wgt. Loss Eyes: reports: No Symptoms, Double Vision HENT: reports: No Symptoms Neck: reports: No Symptoms Cardiovascular: reports: Chest Pain, Shortness of Breath. denies: Edema, Palpitations Respiratory: reports: Cough, Hemoptysis, SOB, SOB on Exertion, Wheezing Gastrointestinal: reports: No Symptoms Genitourinary: reports: No Symptoms Breasts: reports: No Symptoms Reported Musculoskeletal: reports: No Symptoms Integumentary: reports: No Symptoms Neurological: reports: No Symptoms Endocrine: reports: No Symptoms Hematology/Lymphatic: reports: No Symptoms Psychiatric: reports: No Symptoms Physical Exam Vital Sings: Vital Signs Temperature 98.2 F 08/10/17 10:00 Pulse Rate 62 08/10/17 10:45 Respiratory Rate 18 08/10/17 10:00 Blood Pressure 108/58 08/10/17 10:00 O2 Sat by Pulse Oximetry (%) 90 L 08/10/17 10:45 Constitutional: Yes: Mild Distress, Obese Eyes: Yes: Conjunctiva Clear, EOM Intact HENT: Yes: Atraumatic, Normocephalic, Other (Trach intact and patent ) Neck: Yes: Supple, Trachea Midline, Other (Trachintact and patent ) Respiratory: Yes: Cough, Diminished, Dullness, Rhonchi, Tachypnea, Wheezes, Other (Trach collar ). No: Accessory Muscle Use, Stridor ...Inspection: Yes: WNL ...Clubbing: No Gastrointestinal: Yes: Normal Bowel Sounds, Soft, Abdomen, Obese Renal/: Yes: WNL Musculoskeletal: Yes: WNL Extremities: Yes: WNL Edema: Yes Peripheral Pulses WNL: Yes Integumentary: Yes: WNL Neurological: Yes: WNL, Alert, Oriented ...Motor Strength: WNL Psychiatric: Yes: WNL, Alert, Oriented Labs: CBC, BMP 08/10/17 05:30 08/10/17 05:30 Imaging - Results Chest X-ray: Report Reviewed, Image Reviewed Problem List - Problems (1) Acute on chronic respiratory failure with hypoxia and hypercapnia Code(s): J96.21 - ACUTE AND CHRONIC RESPIRATORY FAILURE WITH HYPOXIA; J96.22 - ACUTE AND CHRONIC RESPIRATORY FAILURE WITH HYPERCAPNIA (2) COPD Acute exacerbation of chronic obstructive airways disease Code(s): J44.1 - CHRONIC OBSTRUCTIVE PULMONARY DISEASE W (ACUTE) EXACERBATION (3) Chronic diastolic heart failure Code(s): I50.32 - CHRONIC DIASTOLIC (CONGESTIVE) HEART FAILURE (4) Diarrhea Code(s): R19.7 - DIARRHE[place], UNSPECIFIED Qualifiers: Diarrhea type: unspecified type Qualified Code(s): R19.7 - Diarrhea, unspecified (5) Hemoptysis Code(s): R04.2 - HEMOPTYSIS (6) CAD (coronary artery disease) Code(s): I25.10 - ATHSCL HEART DISEASE OF [place] CORONARY ARTERY W/O ANG PCTRS Qualifiers: Coronary Disease-Associated Artery/Lesion type: [place] artery [place] vs. transplanted heart: [place] heart Associated angina: without angina Qualified Code(s): I25.10 - Atherosclerotic heart disease of [place] coronary artery without angina pectoris (7) Chronic diastolic heart failure Code(s): I50.32 - CHRONIC DIASTOLIC (CONGESTIVE) HEART FAILURE (8) History of coronary artery bypass graft Code(s): Z95.1 - PRESENCE OF AORTOCORONARY BYPASS GRAFT (9) History of tracheostomy Code(s): Z98.89 - OTHER SPECIFIED POSTPROCEDURAL STATES * DO NOT USE * (10) Morbid obesity with BMI of 45.0-49.9, adult Code(s): Z68.42 - BODY MASS INDEX (BMI) 45.0-49.9, ADULT (11) Obstructive sleep apnea Code(s): G47.33 - OBSTRUCTIVE SLEEP APNEA (ADULT) (PEDIATRIC) Assessment/Plan Medrol BD TX O2 via Trach collar : no need for mechanical support at this time Do not suspect PNA: changes on CT appears like atelectasis and pleural effusions : Will stop Rocephin Noted patient on Flagyl: C Diff (-): consider D/C VTE prophylaxis OOB to chair if able Will follow Thank you. Dr Mcadams
--- NOTE | 2017-08-10 14:31 | PN ---
Progress Note, Physician - Current Medication List Current Medications: Active Medications Acetaminophen (Tylenol -) 650 mg PO Q6H PRN PRN Reason: PAIN OR FEVER Albuterol/Ipratropium (Duoneb -) 1 amp NEB RQID [facility] Last Admin: 08/10/17 11:57 Dose: 1 amp Furosemide (Lasix Injection -) 40 mg IVPUSH DAILY [facility] Last Admin: 08/10/17 10:21 Dose: 40 mg Heparin Sodium (Porcine) (Heparin -) 5,000 unit SQ TID [facility] Last Admin: 08/10/17 06:14 Dose: 5,000 unit Metronidazole (Flagyl 500mg Premixed Ivpb -) 500 mg in 100 mls @ 100 mls/hr IVPB Q8H-IV [facility] Last Admin: 08/10/17 10:21 Dose: 100 mls/hr Methylprednisolone Sodium Succinate (Solu-Medrol -) 40 mg IVPB Q6H [facility] Last Admin: 08/10/17 10:21 Dose: 40 mg - Objective Vital Signs: Vital Signs Temperature 98.2 F 08/10/17 10:00 Pulse Rate 62 08/10/17 10:45 Respiratory Rate 18 08/10/17 10:00 Blood Pressure 108/58 08/10/17 10:00 O2 Sat by Pulse Oximetry (%) 90 L 08/10/17 10:45 Labs: CBC, BMP 08/10/17 05:30 08/10/17 05:30 INR, PTT INR 1.09 (0.82-1.09) 08/09/17 15:15 Problem List - Problems (1) Abdominal pain Code(s): R10.9 - UNSPECIFIED ABDOMINAL PAIN Qualifiers: Abdominal location: unspecified location Qualified Code(s): R10.9 - Unspecified abdominal pain (2) Diarrhea Code(s): R19.7 - DIARRHEA, UNSPECIFIED Qualifiers: Diarrhea type: unspecified type Qualified Code(s): R19.7 - Diarrhea, unspecified (3) Acute on chronic respiratory failure with hypoxia and hypercapnia Code(s): J96.21 - ACUTE AND CHRONIC RESPIRATORY FAILURE WITH HYPOXIA; J96.22 - ACUTE AND CHRONIC RESPIRATORY FAILURE WITH HYPERCAPNIA (4) Chronic respiratory failure with hypoxia Code(s): J96.11 - CHRONIC RESPIRATORY FAILURE WITH HYPOXIA (5) Morbid obesity with BMI of 45.0-49.9, adult Code(s): Z68.42 - BODY MASS INDEX (BMI) 45.0-49.9, ADULT (6) CAD (coronary artery disease) Code(s): I25.10 - ATHSCL HEART DISEASE OF [place] CORONARY ARTERY W/O ANG PCTRS Qualifiers: Coronary Disease-Associated Artery/Lesion type: [place] artery [place] vs. transplanted heart: [place] heart Associated angina: without angina Qualified Code(s): I25.10 - Atherosclerotic heart disease of [place] coronary artery without angina pectoris Assessment/Plan Surgery: C/O Chronic abdominal pain , on right side. Morbidly obese. No sign of peritonitis. Having diarrhea. Stool for cultures. G.I consultation.
--- NOTE | 2017-08-10 14:39 | EKG ---
Test Reason : Blood Pressure : / mmHG Vent. Rate : 075 BPM Atrial Rate : 075 BPM P-R Int : 146 ms QRS Dur : 098 ms QT Int : 388 ms P-R-T Axes : 052 -88 030 degrees QTc Int : 433 ms NORMAL SINUS RHYTHM WITH SINUS ARRHYTHMIA PULMONARY DISEASE PATTERN INCOMPLETE RIGHT BUNDLE BRANCH BLOCK LEFT ANTERIOR FASCICULAR BLOCK ABNORMAL ECG WHEN COMPARED WITH ECG OF 29-AUG-2016 09:04, NO SIGNIFICANT CHANGE WAS FOUND Confirmed by MD Devang, Lavell ([id number]) on 08/10/2017 2:38:53 PM Referred By: Confirmed By:Lavell Siddiqi MD
--- NOTE | 2017-08-10 16:25 | PN ---
Progress Note, Physician History of Present Illness: Shortness of breath, productive cough, and increased secretions improved. Denies chest pain or dizziness. - Current Medication List Current Medications: Active Medications Acetaminophen (Tylenol -) 650 mg PO Q6H PRN PRN Reason: PAIN OR FEVER Albuterol/Ipratropium (Duoneb -) 1 amp NEB RQID [facility] Last Admin: 08/10/17 11:57 Dose: 1 amp Furosemide (Lasix Injection -) 40 mg IVPUSH DAILY [facility] Last Admin: 08/10/17 10:21 Dose: 40 mg Heparin Sodium (Porcine) (Heparin -) 5,000 unit SQ TID [facility] Last Admin: 08/10/17 14:40 Dose: 5,000 unit Metronidazole (Flagyl 500mg Premixed Ivpb -) 500 mg in 100 mls @ 100 mls/hr IVPB Q8H-IV [facility] Last Admin: 08/10/17 10:21 Dose: 100 mls/hr Methylprednisolone Sodium Succinate (Solu-Medrol -) 40 mg IVPB Q6H [facility] Last Admin: 08/10/17 10:21 Dose: 40 mg - Objective Vital Signs: Vital Signs Temperature 98.2 F 08/10/17 10:00 Pulse Rate 62 08/10/17 10:45 Respiratory Rate 18 08/10/17 10:00 Blood Pressure 108/58 08/10/17 10:00 O2 Sat by Pulse Oximetry (%) 90 L 08/10/17 10:45 Constitutional: Yes: No Distress, Calm HENT: Yes: Other (Chronic tracheostomy) Neck: Yes: Supple Cardiovascular: Yes: Regular Rate and Rhythm Respiratory: Yes: Regular, Diminished Gastrointestinal: Yes: Normal Bowel Sounds, Soft Edema: No Labs: CBC, BMP 08/10/17 05:30 08/10/17 05:30 INR, PTT INR 1.09 (0.82-1.09) 08/09/17 15:15 Problem List - Problems (1) Demand ischemia Code(s): I24.8 - OTHER FORMS OF ACUTE ISCHEMIC HEART DISEASE (2) Acute on chronic respiratory failure with hypoxia and hypercapnia Code(s): J96.21 - ACUTE AND CHRONIC RESPIRATORY FAILURE WITH HYPOXIA; J96.22 - ACUTE AND CHRONIC RESPIRATORY FAILURE WITH HYPERCAPNIA (3) COPD Acute exacerbation of chronic obstructive airways disease Code(s): J44.1 - CHRONIC OBSTRUCTIVE PULMONARY DISEASE W (ACUTE) EXACERBATION (4) CAD (coronary artery disease) Code(s): I25.10 - ATHSCL HEART DISEASE OF [place] CORONARY ARTERY W/O ANG PCTRS Qualifiers: Coronary Disease-Associated Artery/Lesion type: [place] artery [place] vs. transplanted heart: [place] heart Associated angina: without angina Qualified Code(s): I25.10 - Atherosclerotic heart disease of [place] coronary artery without angina pectoris (5) Chronic diastolic heart failure Code(s): I50.32 - CHRONIC DIASTOLIC (CONGESTIVE) HEART FAILURE (6) History of tracheostomy Code(s): Z98.89 - OTHER SPECIFIED POSTPROCEDURAL STATES * DO NOT USE * (7) Obstructive sleep apnea Code(s): G47.33 - OBSTRUCTIVE SLEEP APNEA (ADULT) (PEDIATRIC) Assessment/Plan May 09, 2015 Normal LV size and fxn, mild cLVH, cannot assess valvular pathologies due to poor echo windows 1. Acute on chronic hypoxic, hypercapenic respiratory failure with COPD exacerbation and left base ATX 2. SUDEEP with chronic tracheostomy 3. HTN 4. Diastolic dysfunction 5. Morbid obesity 6. Demand ischemia PLAN: 1. Trops have peaked 2. BD, abx d/rosalia, steroids, O2 to keep saO2>90%, rest on vent nightly, diuresis as needed 3. DVT prophylaxis 4. C. diff negative so d/c flagyl
[2017-08-11] MEDS: methylPREDNISolone NA SUCC 125 MG/2 ML VIAL IVPB SCH ×2 (03:00→10:17)
[2017-08-11] MEDS: HEPARIN NA (PORCINE) 5,000 UNITS/ML 1ML VIAL SQ SCH ×3 (06:17→21:44)
[2017-08-11] MEDS: ALBUTEROL SO4 2.5/IPRATROPIUM 0.5 INH SOL 3 ML VIAL.NEB. NEB SCH ×4 (08:00→20:09)
[2017-08-11] MEDS: FUROSEMIDE 40 MG/4 ML INJECTABLE VIAL IVPUSH SCH (10:16)
--- NOTE | 2017-08-11 12:08 | PN ---
Progress Note, Physician History of Present Illness: Shortness of breath, productive cough, and increased secretions improved. Denies chest pain or dizziness. - Current Medication List Current Medications: Active Medications Acetaminophen (Tylenol -) 650 mg PO Q6H PRN PRN Reason: PAIN OR FEVER Albuterol/Ipratropium (Duoneb -) 1 amp NEB RQID [facility] Last Admin: 08/11/17 12:07 Dose: 1 amp Furosemide (Lasix Injection -) 40 mg IVPUSH DAILY [facility] Last Admin: 08/11/17 10:16 Dose: 40 mg Heparin Sodium (Porcine) (Heparin -) 5,000 unit SQ TID [facility] Last Admin: 08/11/17 06:17 Dose: 5,000 unit Metronidazole (Flagyl 500mg Premixed Ivpb -) 500 mg in 100 mls @ 100 mls/hr IVPB Q8H-IV [facility] Last Admin: 08/11/17 10:17 Dose: 100 mls/hr Methylprednisolone Sodium Succinate (Solu-Medrol -) 40 mg IVPB Q6H [facility] Last Admin: 08/11/17 10:17 Dose: 40 mg - Objective Vital Signs: Vital Signs Temperature 98.4 F 08/11/17 09:00 Pulse Rate 60 08/11/17 09:00 Respiratory Rate 18 08/11/17 09:00 Blood Pressure 100/48 08/11/17 09:00 O2 Sat by Pulse Oximetry (%) 100 08/11/17 09:00 Constitutional: Yes: No Distress, Calm Neck: Yes: Supple, Other (Chronic tracheostomy) Cardiovascular: Yes: Regular Rate and Rhythm Respiratory: Yes: Regular, Diminished Gastrointestinal: Yes: Normal Bowel Sounds, Soft Edema: No Labs: CBC, BMP 08/10/17 05:30 08/10/17 05:30 INR, PTT INR 1.09 (0.82-1.09) 08/09/17 15:15 Problem List - Problems (1) Demand ischemia Code(s): I24.8 - OTHER FORMS OF ACUTE ISCHEMIC HEART DISEASE (2) Acute on chronic respiratory failure with hypoxia and hypercapnia Code(s): J96.21 - ACUTE AND CHRONIC RESPIRATORY FAILURE WITH HYPOXIA; J96.22 - ACUTE AND CHRONIC RESPIRATORY FAILURE WITH HYPERCAPNIA (3) COPD Acute exacerbation of chronic obstructive airways disease Code(s): J44.1 - CHRONIC OBSTRUCTIVE PULMONARY DISEASE W (ACUTE) EXACERBATION (4) CAD (coronary artery disease) Code(s): I25.10 - ATHSCL HEART DISEASE OF [place] CORONARY ARTERY W/O ANG PCTRS Qualifiers: Coronary Disease-Associated Artery/Lesion type: [place] artery [place] vs. transplanted heart: [place] heart Associated angina: without angina Qualified Code(s): I25.10 - Atherosclerotic heart disease of [place] coronary artery without angina pectoris (5) Chronic diastolic heart failure Code(s): I50.32 - CHRONIC DIASTOLIC (CONGESTIVE) HEART FAILURE (6) History of tracheostomy Code(s): Z98.89 - OTHER SPECIFIED POSTPROCEDURAL STATES * DO NOT USE * (7) Obstructive sleep apnea Code(s): G47.33 - OBSTRUCTIVE SLEEP APNEA (ADULT) (PEDIATRIC) Assessment/Plan May 09, 2015 Normal LV size and fxn, mild cLVH, cannot assess valvular pathologies due to poor echo windows 1. Acute on chronic hypoxic, hypercapenic respiratory failure with COPD exacerbation and left base ATX 2. SUDEEP with chronic tracheostomy 3. HTN 4. Diastolic dysfunction 5. Morbid obesity 6. Demand ischemia 7. Gram+ Bacilli PLAN: 1. Trops have peaked 2. BD, Rocephin resumed, IV steroids, O2 to keep saO2>90%, rest on vent nightly , diuresis as needed, repeat surveillance cultures 3. DVT prophylaxis 4. C. diff negative so d/c flagyl
--- NOTE | 2017-08-11 13:03 | PN ---
Addendum entered and electronically signed by Elvin Robertson, RESIDENT 08/11/17 13:14: ADDENDUM: / bottles growing G+ bacteria with pending organism. Likely contaminate; repeat BCx for confirmation of clearance. Elevated troponins - peaked; no need to trend. Likely demand from increased respiratory work in lieu of chronic diastolic dysfunction Original Note: <Elvin Robertson - Last Filed: 08/11/17 13:03> Physical Exam: SUBJECTIVE: No acute events overnight. Pt reports marked improvement in his work of breathing. He also reports his legs are back at his baseline. In addition he still endorses abdominal pain focused in the RLQ, however he states the pain is improved compared to yesterday. Pt reports having periods of constipation where he feels his RLQ tense when he does not have a BM for a few days. Pt notes this occurred last week, however his last BM was noted to be a day and half ago. Pt denies any episodes of nausea or vomiting during these periods of constipation. Finally, pt's trach collar cannot stay on because the philange of his XLT has broken without compromise to the device itself. OBJECTIVE: Vital Signs Period Temp Pulse Resp BP Sys/Brandt Pulse Ox Last 24 Hr 97.4 F-98.9 F 53-68 14-18 92-143/34-79 92-100 GENERAL: NAD, awake, alert, and fully oriented, sitting in chair HEENT: EOMI, NELSON, sclera anicteric, MMM NECK: No secretions eminating from trach. XLT noted with R philange broken. LUNGS: Diminished breath sounds at the bases bilaterally, no wheezes, no crackles, no accessory muscle use. HEART: RRR, S1, S2 without murmur ABDOMEN: Soft, obese, nondistended, tympanitic, slight TTP in RLQ without guarding or rebound. No Rosving's or obturator signs. Could not fully appreciated hepatomegaly. EXTREMITIES: 2+ DP pulses, warm, well-perfused, no edema. PSYCH: Normal mood, normal affect. SKIN: Warm, dry, no rashes or lesions noted Active Medications Generic Name Dose Route Start Last Admin Trade Name Freq PRN Reason Stop Dose Admin Acetaminophen 650 mg 08/09/17 17:47 Tylenol - PO Q6H PRN PAIN OR FEVER Albuterol/Ipratropium 1 amp 08/09/17 20:00 08/11/17 12:07 Duoneb - NEB 1 amp RQID [facility] Administration Furosemide 40 mg 08/10/17 10:00 08/11/17 10:16 Lasix Injection - IVPUSH 40 mg DAILY [facility] Administration Heparin Sodium (Porcine) 5,000 unit 08/09/17 22:00 08/11/17 06:17 Heparin - SQ 5,000 unit TID [facility] Administration Metronidazole 500 mg in 100 mls @ 100 mls/hr 08/09/17 18:00 08/11/17 10:17 Flagyl 500mg Premixed Ivpb - IVPB 100 mls/hr Q8H-IV [facility] Administration Methylprednisolone Sodium Succinate 40 mg 08/09/17 22:00 08/11/17 10:17 Solu-Medrol - IVPB 40 mg Q6H [facility] Administration ASSESSMENT/PLAN: 1) Acute COPD exacerbation --Low suspicion for any CHF exacerbation due to most signs being dyspnea with productive cough --Continue Solu-medrol 40mg q6h (will likely decrease to BID tomorrow if continued improvement seen) --Continue Duonebs scheduled --Pulmonology on board --Would monitor off of ABX; lack of fevers, leukocytosis --Ventilator rest at night with blow-by O2 to collar (fiO2 40%) during day if needed --Will keep Lasix 40mg IVP qdaily today, with close monitoring of volume status 2) Abdominal pain --C diff ruled out (negative tox and Ag) --Abdominal CT w/ oral contrast awaiting official report, however no gross inflammation, abscesses, or infectious processes seen by me --Dr. Tapia previously consulted; does not feel appendicitis is suspected --Discontinue Flagyl --Pt reports having episodes of constipation where he feels tense in RLQ; possible inflammation of bowel wall after constipation episode within the past week --No evidence of bowel wall ulceration or microtearing --Colace 100mg BID FEN: Fluids: Tolerating PO observe off Electrolyte abnormalities: None today Nutrition: Sodium-controlled PPX: DVT - Heparin SQ GI - None indicated currently Dispo: continue monitoring Case discussed with Dr. Siri Robertson, DO - IM PGY-1 Visit type - Emergency Visit Emergency Visit: No - New Patient This patient is new to me today: No - Critical Care Critical Care patient: No <Alejo Horner - Last Filed: 08/11/17 15:21> Physical Exam: Agree with the resident's note, will reduce the dose of Solumedrol to 40mg IV q8. Follow the Ct of abd. with oral contrast.
--- NOTE | 2017-08-11 13:14 | PN ---
Progress Note (short form) - Note Progress Note: Appears clinically better today. Less SOB and congested cough is less. No CP. NAD on Trach collar Intake & Output 08/08/17 08/09/17 08/10/17 08/11/17 23:59 23:59 23:59 23:59 Intake Total 1200 550 Output Total 1400 Balance -200 550 Weight 325 lb 2 oz Last Vital Signs Temp Pulse Resp BP Pulse Ox 98.4 F 60 18 100/48 100 08/11/17 09:00 08/11/17 09:00 08/11/17 09:00 08/11/17 09:00 08/11/17 09:00 Home Medication List Medication Instructions Recorded Confirmed Type Albuterol Sulfate Inhaler - 1 - 2 inh PO QID 08/29/16 08/09/17 History [Ventolin Hfa Inhaler -] Meloxicam 0 mg PO DAILY 08/29/16 08/09/17 History Potassium Chloride 0 meq PO DAILY 08/29/16 08/09/17 History Salmeterol/Fluticasone [Advair 1 inh IH DAILY 08/29/16 08/09/17 History 250Mcg/50Mcg -] Tamsulosin HCl [Flomax] 0.4 mg PO DAILY 08/29/16 08/09/17 History Active Medications Generic Name Dose Route Start Last Admin Trade Name Freq PRN Reason Stop Dose Admin Acetaminophen 650 mg 08/09/17 17:47 Tylenol - PO Q6H PRN PAIN OR FEVER Albuterol/Ipratropium 1 amp 08/09/17 20:00 08/11/17 12:07 Duoneb - NEB 1 amp RQID ABEL Administration Docusate Sodium 100 mg 08/11/17 13:15 Colace - PO 08/12/17 22:01 BID ABEL Furosemide 40 mg 08/10/17 10:00 08/11/17 10:16 Lasix Injection - IVPUSH 40 mg DAILY ABEL Administration Heparin Sodium (Porcine) 5,000 unit 08/09/17 22:00 08/11/17 06:17 Heparin - SQ 5,000 unit TID ABEL Administration Methylprednisolone Sodium Succinate 40 mg 08/09/17 22:00 08/11/17 10:17 Solu-Medrol - IVPB 40 mg Q6H ABEL Administration Constitutional: Yes: NAD, Obese Eyes: Yes: Conjunctiva Clear, EOM Intact HENT: Yes: Atraumatic, Normocephalic, Other (Trach intact and patent ) Neck: Yes: Supple, Trachea Midline, Other (Trachintact and patent ) Respiratory: Yes: Cough, Diminished, Dullness, Rhonchi, Less Wheezes, Other ( Trach collar ). No: Accessory Muscle Use, Stridor ...Inspection: Yes: WNL ...Clubbing: No Gastrointestinal: Yes: Normal Bowel Sounds, Soft, Abdomen, Obese Renal/: Yes: WNL Musculoskeletal: Yes: WNL Extremities: Yes: WNL Edema: Yes Peripheral Pulses WNL: Yes Integumentary: Yes: WNL Neurological: Yes: WNL, Alert, Oriented ...Motor Strength: WNL Psychiatric: Yes: WNL, Alert, Oriented Labs: Problem List - Problems (1) Acute on chronic respiratory failure with hypoxia and hypercapnia Code(s): J96.21 - ACUTE AND CHRONIC RESPIRATORY FAILURE WITH HYPOXIA; J96.22 - ACUTE AND CHRONIC RESPIRATORY FAILURE WITH HYPERCAPNIA (2) COPD Acute exacerbation of chronic obstructive airways disease Code(s): J44.1 - CHRONIC OBSTRUCTIVE PULMONARY DISEASE W (ACUTE) EXACERBATION (3) Chronic diastolic heart failure Code(s): I50.32 - CHRONIC DIASTOLIC (CONGESTIVE) HEART FAILURE (4) Diarrhea Code(s): R19.7 - [place], UNSPECIFIED Qualifiers: Diarrhea type: unspecified type Qualified Code(s): R19.7 - Diarrhea, unspecified (5) Hemoptysis Code(s): R04.2 - HEMOPTYSIS (6) CAD (coronary artery disease) Code(s): I25.10 - ATHSCL HEART DISEASE OF [place] CORONARY ARTERY W/O ANG PCTRS Qualifiers: Coronary Disease-Associated Artery/Lesion type: [place] artery [place] vs. transplanted heart: [place] heart Associated angina: without angina Qualified Code(s): I25.10 - Atherosclerotic heart disease of [place] coronary artery without angina pectoris (7) Chronic diastolic heart failure Code(s): I50.32 - CHRONIC DIASTOLIC (CONGESTIVE) HEART FAILURE (8) History of coronary artery bypass graft Code(s): Z95.1 - PRESENCE OF AORTOCORONARY BYPASS GRAFT (9) History of tracheostomy Code(s): Z98.89 - OTHER SPECIFIED POSTPROCEDURAL STATES * DO NOT USE * (10) Morbid obesity with BMI of 45.0-49.9, adult Code(s): Z68.42 - BODY MASS INDEX (BMI) 45.0-49.9, ADULT (11) Obstructive sleep apnea Code(s): G47.33 - OBSTRUCTIVE SLEEP APNEA (ADULT) (PEDIATRIC) Assessment/Plan Wean Medrol BD TX O2 via Trach collar : no need for mechanical support at this time Do not suspect PNA: changes on CT appears like atelectasis and pleural effusions : Monitor off Rocephin VTE prophylaxis OOB to chair if able Dr Mcadams Problem List - Problems (1) Acute on chronic respiratory failure with hypoxia and hypercapnia Code(s): J96.21 - ACUTE AND CHRONIC RESPIRATORY FAILURE WITH HYPOXIA; J96.22 - ACUTE AND CHRONIC RESPIRATORY FAILURE WITH HYPERCAPNIA (2) COPD Acute exacerbation of chronic obstructive airways disease Code(s): J44.1 - CHRONIC OBSTRUCTIVE PULMONARY DISEASE W (ACUTE) EXACERBATION (3) Chronic diastolic heart failure Code(s): I50.32 - CHRONIC DIASTOLIC (CONGESTIVE) HEART FAILURE (4) Diarrhea Code(s): R19.7 - [place], UNSPECIFIED Qualifiers: Diarrhea type: unspecified type Qualified Code(s): R19.7 - Diarrhea, unspecified (5) Hemoptysis Code(s): R04.2 - HEMOPTYSIS (6) CAD (coronary artery disease) Code(s): I25.10 - ATHSCL HEART DISEASE OF [place] CORONARY ARTERY W/O ANG PCTRS Qualifiers: Coronary Disease-Associated Artery/Lesion type: [place] artery [place] vs. transplanted heart: [place] heart Associated angina: without angina Qualified Code(s): I25.10 - Atherosclerotic heart disease of [place] coronary artery without angina pectoris (7) Chronic diastolic heart failure Code(s): I50.32 - CHRONIC DIASTOLIC (CONGESTIVE) HEART FAILURE (8) History of coronary artery bypass graft Code(s): Z95.1 - PRESENCE OF AORTOCORONARY BYPASS GRAFT (9) History of tracheostomy Code(s): Z98.89 - OTHER SPECIFIED POSTPROCEDURAL STATES * DO NOT USE * (10) Morbid obesity with BMI of 45.0-49.9, adult Code(s): Z68.42 - BODY MASS INDEX (BMI) 45.0-49.9, ADULT (11) Obstructive sleep apnea Code(s): G47.33 - OBSTRUCTIVE SLEEP APNEA (ADULT) (PEDIATRIC)
[2017-08-11] MEDS: DOCUSATE SODIUM 100 MG CAPSULE (FP) PO SCH ×2 (13:48→21:44)
--- NOTE | 2017-08-11 16:41 | PN ---
Progress Note, Physician - Current Medication List Current Medications: Active Medications Acetaminophen (Tylenol -) 650 mg PO Q6H PRN PRN Reason: PAIN OR FEVER Albuterol/Ipratropium (Duoneb -) 1 amp NEB RQID [facility] Last Admin: 08/11/17 12:07 Dose: 1 amp Docusate Sodium (Colace -) 100 mg PO BID [facility] Stop: 08/12/17 22:01 Last Admin: 08/11/17 13:48 Dose: 100 mg Furosemide (Lasix Injection -) 40 mg IVPUSH DAILY [facility] Last Admin: 08/11/17 10:16 Dose: 40 mg Heparin Sodium (Porcine) (Heparin -) 5,000 unit SQ TID [facility] Last Admin: 08/11/17 13:48 Dose: 5,000 unit Methylprednisolone Sodium Succinate (Solu-Medrol -) 40 mg IVPB BID [facility] - Objective Vital Signs: Vital Signs Temperature 98.6 F 08/11/17 14:36 Pulse Rate 56 L 08/11/17 14:36 Respiratory Rate 16 08/11/17 14:36 Blood Pressure 110/62 08/11/17 14:36 O2 Sat by Pulse Oximetry (%) 100 08/11/17 09:00 Labs: CBC, BMP 08/10/17 05:30 08/10/17 05:30 INR, PTT INR 1.09 (0.82-1.09) 08/09/17 15:15 Problem List - Problems (1) Abdominal pain Code(s): R10.9 - UNSPECIFIED ABDOMINAL PAIN Qualifiers: Abdominal location: unspecified location Qualified Code(s): R10.9 - Unspecified abdominal pain (2) Diarrhea Code(s): R19.7 - [place], UNSPECIFIED Qualifiers: Diarrhea type: unspecified type Qualified Code(s): R19.7 - Diarrhea, unspecified (3) Acute on chronic respiratory failure with hypoxia and hypercapnia Code(s): J96.21 - ACUTE AND CHRONIC RESPIRATORY FAILURE WITH HYPOXIA; J96.22 - ACUTE AND CHRONIC RESPIRATORY FAILURE WITH HYPERCAPNIA (4) Chronic respiratory failure with hypoxia Code(s): J96.11 - CHRONIC RESPIRATORY FAILURE WITH HYPOXIA (5) Morbid obesity with BMI of 45.0-49.9, adult Code(s): Z68.42 - BODY MASS INDEX (BMI) 45.0-49.9, ADULT (6) CAD (coronary artery disease) Code(s): I25.10 - ATHSCL HEART DISEASE OF [place] CORONARY ARTERY W/O ANG PCTRS Qualifiers: Coronary Disease-Associated Artery/Lesion type: [place] artery [place] vs. transplanted heart: [place] heart Associated angina: without angina Qualified Code(s): I25.10 - Atherosclerotic heart disease of [place] coronary artery without angina pectoris Assessment/Plan Patient feels goog. CT scan : ? mild diverticulitis n vs colitis. Continue treatment for colitis. No surgical intervention needed at this time.
[2017-08-11] MEDS: methylPREDNISolone NA SUCC 40 MG/1 ML VIAL IVPB SCH (21:45)
[2017-08-12] MEDS: HEPARIN NA (PORCINE) 5,000 UNITS/ML 1ML VIAL SQ SCH ×3 (05:06→22:13)
[2017-08-12 07:16] LABS: CHLORIDE 92 mmol/L (98-107); POTASSIUM 4.8 mmol/L (3.5-5.1); SODIUM 137 mmol/L (136-145)
--- NOTE | 2017-08-12 07:30 | PN ---
Progress Note (short form) - Note Progress Note: Patient was seen by Dr. Soy Caballero in the past and he be assuming care, Dr. Leyda Caballero was notified, thank you Jose Mosley MD
[2017-08-12 07:40] LABS: ALBUMIN 3.3 g/dl (3.4-5.0); ALK PHOS 54 U/L (45-117); ANION GAP 4 (8-16); BILIRUBIN,TOTAL 0.3 mg/dL (0.2-1.0); BLOOD UREA NITROGEN 29 mg/dL (7-18); CALCIUM 9.1 mg/dL (8.5-10.1); CO2 41 mmol/L (21-32); CREATININE 1.2 mg/dL (0.7-1.3); GLUCOSE,RANDOM 115 mg/dL (74-106); MAGNESIUM 2.3 mg/dL (1.8-2.4); SGOT/AST 27 U/L (15-37); SGPT/ALT 27 U/L (12-78); TOT PROT 7.5 g/dl (6.4-8.2)
[2017-08-12] MEDS: ALBUTEROL SO4 2.5/IPRATROPIUM 0.5 INH SOL 3 ML VIAL.NEB. NEB SCH ×4 (07:40→21:30)
[2017-08-12 07:47] LABS: BASO % 0.1 % (0-2.0); HEMATOCRIT 48.1 % (35.4-49); HEMOGLOBIN 15.3 GM/dL (11.7-16.9); LYMPH % 7.7 % (8-40); MCH 30.4 pg (25.7-33.7); MCHC 31.9 g/dl (32.0-35.9); MEAN CELL VOLUME 95.4 fl (80-96); MEAN PLT VOLUME 11.6 fl (7.5-11.1); MONO % 6.2 % (3.8-10.2); PLATELET COUNT 123 K/MM3 (134-434); RBC 5.04 M/mm3 (4.00-5.60); RDW 16.7 % (11.9-15.9)
[2017-08-12 09:32] LABS: PLATELET ESTIMATE DECREASED
--- NOTE | 2017-08-12 10:15 | PN ---
Progress Note, Physician Chief Complaint: sob History of Present Illness: sob a little better he says. lots of phlegm. no cp. says legs were more swollen than usual at home, despite lasix 40 qd compliance no cigs - Current Medication List Current Medications: Active Medications Acetaminophen (Tylenol -) 650 mg PO Q6H PRN PRN Reason: PAIN OR FEVER Albuterol/Ipratropium (Duoneb -) [address] [facility] Last Admin: 08/12/17 07:40 Dose: 1 amp Docusate Sodium (Colace -) [address] [facility] Stop: 08/12/17 22:01 Last Admin: 08/11/17 21:44 Dose: Not Given Furosemide (Lasix Injection -) [address] [facility] Last Admin: 08/11/17 10:16 Dose: 40 mg Heparin Sodium (Porcine) (Heparin -) 5,[address] [facility] Last Admin: 08/12/17 05:06 Dose: 5,000 unit Methylprednisolone Sodium Succinate (Solu-Medrol -) [address] [facility] Last Admin: 08/11/17 21:45 Dose: 40 mg - Objective Vital Signs: Vital Signs Temperature 98.4 F 08/12/17 05:36 Pulse Rate 49 L 08/12/17 05:36 Respiratory Rate 20 08/12/17 05:36 Blood Pressure 103/49 08/12/17 05:36 O2 Sat by Pulse Oximetry (%) 100 08/11/17 20:44 Constitutional: Yes: No Distress, Calm, Obese Eyes: No: Sclera Icterus HENT: No: Nasal Congestion Cardiovascular: Yes: Regular Rate and Rhythm (decr intensity sounds (chronic, no change)), S1, S2, Other (PMI non diplaced). No: Gallop, Murmur Respiratory: Yes: CTA Bilaterally (decr sounds (chronic, no change)). No: Accessory Muscle Use, Rales, Wheezes Gastrointestinal: Yes: Normal Bowel Sounds, Soft (tds habitus). No: Tenderness Musculoskeletal: Yes: Other (No kyphosis) Extremities: No: Cold Edema: No Integumentary: No: Jaundice Neurological: Yes: Alert, Oriented (x3) Psychiatric: No: Agitated Labs: CBC, BMP 08/12/17 05:30 08/12/17 05:30 INR, PTT INR 1.09 (0.82-1.09) 08/09/17 15:15 Assessment/Plan CXR: "congestive changes". images reviewed (gitig): ? effusions, probable cephalization, diffuse incr'd marking (all confounded by overyling soft tissue markings-no change vs 07/19, 09/17 tele: NSR, artifact CT abdomen: 1.9 cm adrenal mass likely adenoma--no change in size. steatic hepatosis L/RHC 2017: wedge 15, PA 45/15, RA 12. C.I.=2.0. normal coronaries, normal LVEF a.e. copd, chronic resp failure s/p trach: -being treated by pulm, on steroids troponin elevation: -intermediate range (non-diagnostic for NV), flat trend (0.3 x 3)--not c/w ACS -troponins likely related to chronic increased LV filling pressures (diast chf) , possibly demand ischemia from transient hypoxia -no acute ECG findings acute on chronic diast chf: -suspect mild decompensated chf triggered by a.e. copd -habitus and sx status prohibitively difficult to assess volume status in light of severe copd, chronic resp failure/trach. -? LE edema is venous ins'y vs chf sx historically--on lasix 40 qd at home -recently incr edema at home -BNP 200 (180 prior) -CXR unchanged vs multiple priors--likely signif overlying soft tissue markings confounding -possible effusions--though none seen at bases on CT abdomen (+ atx /- consolidation) -receiving lasix 40 iv here (on 40 po qd at home for LE edema > chf) -bun, bicarb rising. -check weight today, and daily (was 330 lbs in office 07/31/17--likely euvolemic then) -would continue lasix 40 iv until bun/creat and/or bicarb bumps significantly more, then cut back to home lasix 40 po qd regimen parox afib: -remote episode once in hospital, self-limited -AC held then for ? 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
[2017-08-12] MEDS: FUROSEMIDE 40 MG/4 ML INJECTABLE VIAL IVPUSH SCH (10:38)
[2017-08-12] MEDS: DOCUSATE SODIUM 100 MG CAPSULE (FP) PO SCH (10:38)
[2017-08-12] MEDS: methylPREDNISolone NA SUCC 40 MG/1 ML VIAL IVPB SCH ×2 (10:38→22:13)
--- NOTE | 2017-08-12 11:00 | PN ---
Progress Note, Physician History of Present Illness: pulmonary alert,feeling better,comfortable,less congested. - Current Medication List Current Medications: Active Medications Acetaminophen (Tylenol -) 650 mg PO Q6H PRN PRN Reason: PAIN OR FEVER Albuterol/Ipratropium (Duoneb -) 1 amp NEB RQID [facility] Last Admin: 08/12/17 07:40 Dose: 1 amp Docusate Sodium (Colace -) 100 mg PO BID [facility] Stop: 08/12/17 22:01 Last Admin: 08/12/17 10:38 Dose: 100 mg Furosemide (Lasix Injection -) 40 mg IVPUSH DAILY [facility] Last Admin: 08/12/17 10:38 Dose: 40 mg Heparin Sodium (Porcine) (Heparin -) 5,000 unit SQ TID [facility] Last Admin: 08/12/17 05:06 Dose: 5,000 unit Methylprednisolone Sodium Succinate (Solu-Medrol -) 40 mg IVPB BID [facility] Last Admin: 08/12/17 10:38 Dose: 40 mg - Objective Vital Signs: Vital Signs Temperature 98.4 F 08/12/17 05:36 Pulse Rate 49 L 08/12/17 05:36 Respiratory Rate 20 08/12/17 05:36 Blood Pressure 103/49 08/12/17 05:36 O2 Sat by Pulse Oximetry (%) 100 08/11/17 20:44 Constitutional: Yes: Calm, Obese Eyes: Yes: WNL HENT: Yes: WNL Neck: Yes: Supple (trach) Cardiovascular: Yes: Regular Rate and Rhythm, S1, S2 Respiratory: Yes: Rhonchi (scattered faby rhonchi) Gastrointestinal: Yes: Normal Bowel Sounds, Soft Extremities: Yes: WNL Edema: Yes Labs: CBC, BMP 08/12/17 05:30 08/12/17 05:30 INR, PTT INR 1.09 (0.82-1.09) 08/09/17 15:15 Assessment/Plan Problem List - Problems (1) Acute on chronic respiratory failure with hypoxia and hypercapnia Code(s): J96.21 - ACUTE AND CHRONIC RESPIRATORY FAILURE WITH HYPOXIA; J96.22 - ACUTE AND CHRONIC RESPIRATORY FAILURE WITH HYPERCAPNIA (2) COPD Acute exacerbation of chronic obstructive airways disease Code(s): J44.1 - CHRONIC OBSTRUCTIVE PULMONARY DISEASE W (ACUTE) EXACERBATION (3) Chronic diastolic heart failure Code(s): I50.32 - CHRONIC DIASTOLIC (CONGESTIVE) HEART FAILURE (4) Diarrhea Code(s): R19.7 - DI[place], UNSPECIFIED Qualifiers: Diarrhea type: unspecified type Qualified Code(s): R19.7 - Diarrhea, unspecified (5) Hemoptysis Code(s): R04.2 - HEMOPTYSIS (6) CAD (coronary artery disease) Code(s): I25.10 - ATHSCL HEART DISEASE OF [place] CORONARY ARTERY W/O ANG PCTRS Qualifiers: Coronary Disease-Associated Artery/Lesion type: [place] artery [place] vs. transplanted heart: [place] heart Associated angina: without angina Qualified Code(s): I25.10 - Atherosclerotic heart disease of [place] coronary artery without angina pectoris (7) Chronic diastolic heart failure Code(s): I50.32 - CHRONIC DIASTOLIC (CONGESTIVE) HEART FAILURE (8) History of coronary artery bypass graft Code(s): Z95.1 - PRESENCE OF AORTOCORONARY BYPASS GRAFT (9) History of tracheostomy Code(s): Z98.89 - OTHER SPECIFIED POSTPROCEDURAL STATES * DO NOT USE * (10) Morbid obesity with BMI of 45.0-49.9, adult Code(s): Z68.42 - BODY M[place] INDEX (BMI) 45.0-49.9, ADULT (11) Obstructive sleep apnea Code(s): G47.33 - OBSTRUCTIVE SLEEP APNEA (ADULT) (PEDIATRIC) Assessment/Plan Medrol taper BD TX O2 via Trach collar Do not suspect PNA: changes on CT appears like atelectasis and pleural effusions : Monitor off Rocephin VTE prophylaxis OOB to chair DR NAVARRETE Problem List - Problems (1) Acute on chronic respiratory failure with hypoxia and hypercapnia Code(s): J96.21 - ACUTE AND CHRONIC RESPIRATORY FAILURE WITH HYPOXIA; J96.22 - ACUTE AND CHRONIC RESPIRATORY FAILURE WITH HYPERCAPNIA (2) COPD Acute exacerbation of chronic obstructive airways disease Code(s): J44.1 - CHRONIC OBSTRUCTIVE PULMONARY DISEASE W (ACUTE) EXACERBATION (3) Chronic diastolic heart failure Code(s): I50.32 - CHRONIC DIASTOLIC (CONGESTIVE) HEART FAILURE (4) Diarrhea Code(s): R19.7 - [place], UNSPECIFIED Qualifiers: Diarrhea type: unspecified type Qualified Code(s): R19.7 - Diarrhea, unspecified (5) Hemoptysis Code(s): R04.2 - HEMOPTYSIS (6) CAD (coronary artery disease) Code(s): I25.10 - ATHSCL HEART DISEASE OF [place] CORONARY ARTERY W/O ANG PCTRS Qualifiers: Coronary Disease-Associated Artery/Lesion type: [place] artery [place] vs. transplanted heart: [place] heart Associated angina: without angina Qualified Code(s): I25.10 - Atherosclerotic heart disease of [place] coronary artery without angina pectoris (7) Chronic diastolic heart failure Code(s): I50.32 - CHRONIC DIASTOLIC (CONGESTIVE) HEART FAILURE (8) History of coronary artery bypass graft Code(s): Z95.1 - PRESENCE OF AORTOCORONARY BYPASS GRAFT (9) History of tracheostomy Code(s): Z98.89 - OTHER SPECIFIED POSTPROCEDURAL STATES * DO NOT USE * (10) Morbid obesity with BMI of 45.0-49.9, adult Code(s): Z68.42 - BODY MASS INDEX (BMI) 45.0-49.9, ADULT (11) Obstructive sleep apnea Code(s): G47.33 - OBSTRUCTIVE SLEEP APNEA (ADULT) (PEDIATRIC)
--- NOTE | 2017-08-12 12:44 | PN ---
Physical Exam: SUBJECTIVE: No acute events overnight. No complaints today. Pt feels his breathing is better, however exhibits improved shortness of breath during ambulation. OBJECTIVE: Vital Signs Period Temp Pulse Resp BP Sys/Brandt Pulse Ox Last 24 Hr 98.4 F-99.0 F 49-68 16-20 99-131/49-64 90-100 GENERAL: NAD, awake, alert, and fully oriented, sitting in bed HEENT: EOMI, NELSON, sclera anicteric, MMM NECK: No secretions eminating from trach. XLT noted with R philange taped to trach collar LUNGS: Diminished breath sounds at the bases bilaterally, no wheezes, no crackles, no accessory muscle use. HEART: RRR, S1, S2 without murmur ABDOMEN: Soft, obese, nondistended, tympanitic, NT, no guarding or rebound. EXTREMITIES: 2+ DP pulses, warm, well-perfused, no edema. PSYCH: Normal mood, normal affect. SKIN: Warm, dry, no rashes or lesions noted Laboratory Results - last 24 hr 08/12/17 08/12/17 05:30 05:30 WBC 7.0 D RBC 5.04 Hgb 15.3 Hct 48.1 MCV 95.4 MCH 30.4 MCHC 31.9 L RDW 16.7 H Plt Count 123 L MPV 11.6 H D Absolute Neuts (auto) 6.0 Neutrophils % 86.0 H Lymphocytes % 7.7 L D Monocytes % 6.2 D Eosinophils % 0.0 Basophils % 0.1 Nucleated RBC % 0 Platelet Estimate Decreased Platelet Comment No clumping noted Sodium 137 Potassium 4.8 Chloride 92 L Carbon Dioxide 41 H Anion Gap 4 L BUN 29 H D Creatinine 1.2 Creat Clearance w eGFR > 60 Random Glucose 115 H Calcium 9.1 Phosphorus 3.0 D Magnesium 2.3 Total Bilirubin 0.3 D AST 27 D ALT 27 D Alkaline Phosphatase 54 Total Protein 7.5 Albumin 3.3 L Active Medications Generic Name Dose Route Start Last Admin Trade Name Freq PRN Reason Stop Dose Admin Acetaminophen 650 mg 08/09/17 17:47 Tylenol - PO Q6H PRN PAIN OR FEVER Albuterol/Ipratropium 1 amp 08/09/17 20:00 08/12/17 07:40 Duoneb - NEB 1 amp RQID ABEL Administration Docusate Sodium 100 mg 08/11/17 13:15 08/12/17 10:38 Colace - PO 08/12/17 22:01 100 mg BID ABEL Administration Furosemide 40 mg 08/10/17 10:00 08/12/17 10:38 Lasix Injection - IVPUSH 40 mg DAILY ABEL Administration Heparin Sodium (Porcine) 5,000 unit 08/09/17 22:00 08/12/17 05:06 Heparin - SQ 5,000 unit TID ABEL Administration Methylprednisolone Sodium Succinate 40 mg 08/11/17 22:00 08/12/17 10:38 Solu-Medrol - IVPB 40 mg BID ABEL Administration ASSESSMENT/PLAN: 1) Acute COPD exacerbation --Low suspicion for any CHF exacerbation due to most signs being dyspnea with productive cough (consult switched to Dr. Caballero as he has seen pt in past) --Decreased to Solu-medrol 40mg IVP BID today --Continue Duonebs scheduled --Pulmonology on board --Monitoring off ABX; lack of fevers/WBC --Ventilator rest at night with blow-by O2 to collar (fiO2 40%) during day if needed --Will keep Lasix 40mg IVP qdaily 2) Abdominal pain --C diff ruled out (negative tox and Ag) --Abdominal CT w/ oral contrast w/o significant abnormality --Pt has had this chronic pain for a while --Pt reports having episodes of constipation where he feels tense in RLQ; possible inflammation of bowel wall after constipation episode within the past week --Colace 100mg BID to continue FEN: Fluids: Tolerating PO observe off Electrolyte abnormalities: None today Nutrition: Sodium-controlled PPX: DVT - Heparin SQ GI - None indicated currently Dispo: D/C tele; transfer M/S Case discussed with Dr. Siri Robertson, DO - IM PGY-1 Visit type - Emergency Visit Emergency Visit: No - New Patient This patient is new to me today: No - Critical Care Critical Care patient: No
[2017-08-12] MEDS ORDERED: ACETAMINOPHEN 325 MG TABLET (FP) PO PRN (17:47)
--- NOTE | 2017-08-12 20:53 | PN ---
Teaching Attending Note Name of Resident: Elvin Robertson ATTENDING PHYSICIAN STATEMENT I saw and evaluated the patient. I reviewed the resident's note and discussed the case with the resident. I agree with the resident's findings and plan as documented. SUBJECTIVE: Patient is feeling better with no acute distress. OBJECTIVE: Vital Signs Temperature 98.5 F 08/12/17 17:46 Pulse Rate 57 L 08/12/17 17:46 Respiratory Rate 20 08/12/17 17:46 Blood Pressure 113/64 08/12/17 17:46 O2 Sat by Pulse Oximetry (%) 92 L 08/12/17 10:10 CBCD WBC 7.0 K/mm3 (4.0-10.0) D 08/12/17 05:30 RBC 5.04 M/mm3 (4.00-5.60) 08/12/17 05:30 Hgb 15.3 GM/dL (11.7-16.9) 08/12/17 05:30 Hct 48.1 % (35.4-49) 08/12/17 05:30 MCV 95.4 fl (80-96) 08/12/17 05:30 MCHC 31.9 g/dl (32.0-35.9) L 08/12/17 05:30 RDW 16.7 % (11.9-15.9) H 08/12/17 05:30 Plt Count 123 K/MM3 (134-434) L 08/12/17 05:30 MPV 11.6 fl (7.5-11.1) H D 08/12/17 05:30 CMP Sodium 137 mmol/L (136-145) 08/12/17 05:30 Potassium 4.8 mmol/L (3.5-5.1) 08/12/17 05:30 Chloride 92 mmol/L (98-107) L 08/12/17 05:30 Carbon Dioxide 41 mmol/L (21-32) H 08/12/17 05:30 Anion Gap 4 (8-16) L 08/12/17 05:30 BUN 29 mg/dL (7-18) H D 08/12/17 05:30 Creatinine 1.2 mg/dL (0.7-1.3) 08/12/17 05:30 Creat Clearance w eGFR > 60 (>60) 08/12/17 05:30 Random Glucose 115 mg/dL (74-106) H 08/12/17 05:30 Calcium 9.1 mg/dL (8.5-10.1) 08/12/17 05:30 Total Bilirubin 0.3 mg/dL (0.2-1.0) D 08/12/17 05:30 AST 27 U/L (15-37) D 08/12/17 05:30 ALT 27 U/L (12-78) D 08/12/17 05:30 Alkaline Phosphatase 54 U/L (45-117) 08/12/17 05:30 Total Protein 7.5 g/dl (6.4-8.2) 08/12/17 05:30 Albumin 3.3 g/dl (3.4-5.0) L 08/12/17 05:30 CARDIAC ENZYMES Creatine Kinase 417 IU/L (39-308) H 08/10/17 05:30 Troponin I 0.35 ng/ml (0.00-0.05) H 08/10/17 05:30 Current Medications Generic Name Dose Route Start Last Admin Trade Name Freq PRN Reason Stop Dose Admin Acetaminophen 650 mg 08/12/17 17:47 Tylenol - PO Q6H PRN FEVER Albuterol/Ipratropium 1 amp 08/12/17 20:00 Duoneb - NEB RQID [facility] Docusate Sodium 100 mg 08/12/17 22:00 Colace - PO 08/12/17 22:01 BID [facility] Furosemide 40 mg 08/13/17 10:00 Lasix Injection - IVPUSH DAILY [facility] Heparin Sodium (Porcine) 5,000 unit 08/12/17 22:00 Heparin - SQ TID ABEL Methylprednisolone Sodium Succinate 40 mg 08/12/17 22:00 Solu-Medrol - IVPB BID [facility] Home Medications Medication Instructions Recorded Albuterol Sulfate Inhaler - 1 - 2 inh PO QID 08/29/16 [Ventolin Hfa Inhaler -] Meloxicam 0 mg PO DAILY 08/29/16 Potassium Chloride 0 meq PO DAILY 08/29/16 Salmeterol/Fluticasone [Advair 1 inh IH DAILY 08/29/16 250Mcg/50Mcg -] Tamsulosin HCl [Flomax] 0.4 mg PO DAILY 08/29/16 CT Abdomen: as per report; No evidence of acute pathology ASSESSMENT/PLAN: Patient is a 59 year old male with morbid obesity, SUDEEP, COPD, Trach who presents with diarrhea x 2 days , no fever or chills, positive for cough. Abdominal pain for over 1 year with worsening pain the past 2 days # Acute COPD/chf diastolic exacerbation Pulmonary consult . nebulizer tx, Solumedrol IV 40mg bid , pulmonary on the case. # Acute abdominal pain imporved .CT of abdomen without contrast ; no acute pathology , as per , no surgical intervention and patient has this pain for over 6 months , culture is negative for cdiff and patient has no diarrhea today . #tracheostomy with Fi02 40% tracheo collar, needs to be changed # Hx of HTN continue Lasix 40mg IV DVT Px: heparin
[2017-08-12] MEDS ORDERED: DOCUSATE SODIUM 100 MG CAPSULE (FP) PO SCH (22:00)
[2017-08-13] MEDS: HEPARIN NA (PORCINE) 5,000 UNITS/ML 1ML VIAL SQ SCH ×3 (06:34→21:35)
[2017-08-13] MEDS: ALBUTEROL SO4 2.5/IPRATROPIUM 0.5 INH SOL 3 ML VIAL.NEB. NEB SCH ×4 (08:29→20:24)
[2017-08-13] MEDS: FUROSEMIDE 40 MG/4 ML INJECTABLE VIAL IVPUSH SCH (10:16)
[2017-08-13] MEDS: methylPREDNISolone NA SUCC 40 MG/1 ML VIAL IVPB SCH ×2 (10:16→21:35)
--- NOTE | 2017-08-13 10:35 | PN ---
Progress Note, Physician - Current Medication List Current Medications: Active Medications Acetaminophen (Tylenol -) 650 mg PO Q6H PRN PRN Reason: FEVER Albuterol/Ipratropium (Duoneb -) 1 amp NEB RQID [facility] Last Admin: 08/13/17 08:29 Dose: 1 amp Furosemide (Lasix Injection -) 40 mg IVPUSH DAILY [facility] Last Admin: 08/13/17 10:16 Dose: 40 mg Heparin Sodium (Porcine) (Heparin -) 5,000 unit SQ TID [facility] Last Admin: 08/13/17 06:34 Dose: 5,000 unit Methylprednisolone Sodium Succinate (Solu-Medrol -) 40 mg IVPB BID [facility] Last Admin: 08/13/17 10:16 Dose: 40 mg - Objective Vital Signs: Vital Signs Temperature 98.0 F 08/13/17 09:07 Pulse Rate 75 08/13/17 09:07 Respiratory Rate 17 08/13/17 09:07 Blood Pressure 123/41 08/13/17 09:07 O2 Sat by Pulse Oximetry (%) 92 L 08/12/17 10:10 Labs: CBC, BMP 08/12/17 05:30 08/12/17 05:30 INR, PTT INR 1.09 (0.82-1.09) 08/09/17 15:15 Problem List - Problems (1) Abdominal pain Code(s): R10.9 - UNSPECIFIED ABDOMINAL PAIN Qualifiers: Abdominal location: unspecified location Qualified Code(s): R10.9 - Unspecified abdominal pain (2) Diarrhea Code(s): R19.7 - [place], UNSPECIFIED Qualifiers: Diarrhea type: unspecified type Qualified Code(s): R19.7 - Diarrhea, unspecified (3) Acute on chronic respiratory failure with hypoxia and hypercapnia Code(s): J96.21 - ACUTE AND CHRONIC RESPIRATORY FAILURE WITH HYPOXIA; J96.22 - ACUTE AND CHRONIC RESPIRATORY FAILURE WITH HYPERCAPNIA (4) Chronic respiratory failure with hypoxia Code(s): J96.11 - CHRONIC RESPIRATORY FAILURE WITH HYPOXIA (5) Morbid obesity with BMI of 45.0-49.9, adult Code(s): Z68.42 - BODY MASS INDEX (BMI) 45.0-49.9, ADULT (6) CAD (coronary artery disease) Code(s): I25.10 - ATHSCL HEART DISEASE OF [place] CORONARY ARTERY W/O ANG PCTRS Qualifiers: Coronary Disease-Associated Artery/Lesion type: [place] artery [place] vs. transplanted heart: [place] heart Associated angina: without angina Qualified Code(s): I25.10 - Atherosclerotic heart disease of [place] coronary artery without angina pectoris Assessment/Plan Surgery: Patient is out of bed ambulating. Short of breath. Tolerating diet and having normal bowel movement. Denies any abdominal pain. No sign of any acute abdomen. Will sign off.
--- NOTE | 2017-08-13 12:19 | PN ---
Progress Note (short form) - Note Progress Note: Appears clinically overall better. Less SOB and congested cough. No CP. NAD on Trach collar on RA. Intake & Output 08/10/17 08/11/17 08/12/17 08/13/17 23:59 23:59 23:59 23:59 Intake Total 1200 1040 Output Total 1400 2000 1150 Balance -200 -960 -1150 Weight 325 lb 317 lb 3.2 oz Last Vital Signs Temp Pulse Resp BP Pulse Ox 98.0 F 60 17 123/41 93 L 08/13/17 09:07 08/13/17 11:56 08/13/17 09:07 08/13/17 09:07 08/13/17 11:56 Active Medications Acetaminophen (Tylenol -) 650 mg PO Q6H PRN PRN Reason: FEVER Albuterol/Ipratropium (Duoneb -) 1 amp NEB RQID [facility] Last Admin: 08/13/17 08:29 Dose: 1 amp Furosemide (Lasix Injection -) 40 mg IVPUSH DAILY [facility] Last Admin: 08/13/17 10:16 Dose: 40 mg Heparin Sodium (Porcine) (Heparin -) 5,000 unit SQ TID [facility] Last Admin: 08/13/17 06:34 Dose: 5,000 unit Methylprednisolone Sodium Succinate (Solu-Medrol -) 40 mg IVPB BID [facility] Last Admin: 08/13/17 10:16 Dose: 40 mg Constitutional: Yes: NAD, Obese Eyes: Yes: Conjunctiva Clear, EOM Intact HENT: Yes: Atraumatic, Normocephalic, Other (Trach in place, side attachments broken. tact and patent ) Neck: Yes: Supple, Trachea Midline, Other (Trach intact and patent ) Respiratory: Yes: Cough, Diminished, Dullness, Rhonchi, Less Wheezes, Other ( Trach collar ). No: Accessory Muscle Use, Stridor ...Inspection: Yes: WNL ...Clubbing: No Gastrointestinal: Yes: Normal Bowel Sounds, Soft, Abdomen, Obese Renal/: Yes: WNL Musculoskeletal: Yes: WNL Extremities: Yes: WNL Edema: Yes Peripheral Pulses WNL: Yes Integumentary: Yes: WNL Neurological: Yes: WNL, Alert, Oriented ...Motor Strength: WNL Psychiatric: Yes: WNL, Alert, Oriented Labs: Problem List - Problems (1) Acute on chronic respiratory failure with hypoxia and hypercapnia Code(s): J96.21 - ACUTE AND CHRONIC RESPIRATORY FAILURE WITH HYPOXIA; J96.22 - ACUTE AND CHRONIC RESPIRATORY FAILURE WITH HYPERCAPNIA (2) COPD Acute exacerbation of chronic obstructive airways disease Code(s): J44.1 - CHRONIC OBSTRUCTIVE PULMONARY DISEASE W (ACUTE) EXACERBATION (3) Chronic diastolic heart failure Code(s): I50.32 - CHRONIC DIASTOLIC (CONGESTIVE) HEART FAILURE (4) Diarrhea Code(s): R19.7 - DIARRHE[place], UNSPECIFIED Qualifiers: Diarrhea type: unspecified type Qualified Code(s): R19.7 - Diarrhea, unspecified (5) Hemoptysis Code(s): R04.2 - HEMOPTYSIS (6) CAD (coronary artery disease) Code(s): I25.10 - ATHSCL HEART DISEASE OF [place] CORONARY ARTERY W/O ANG PCTRS Qualifiers: Coronary Disease-Associated Artery/Lesion type: [place] artery [place] vs. transplanted heart: [place] heart Associated angina: without angina Qualified Code(s): I25.10 - Atherosclerotic heart disease of [place] coronary artery without angina pectoris (7) Chronic diastolic heart failure Code(s): I50.32 - CHRONIC DIASTOLIC (CONGESTIVE) HEART FAILURE (8) History of coronary artery bypass graft Code(s): Z95.1 - PRESENCE OF AORTOCORONARY BYPASS GRAFT (9) History of tracheostomy Code(s): Z98.89 - OTHER SPECIFIED POSTPROCEDURAL STATES * DO NOT USE * (10) Morbid obesity with BMI of 45.0-49.9, adult Code(s): Z68.42 - BODY MASS INDEX (BMI) 45.0-49.9, ADULT (11) Obstructive sleep apnea Code(s): G47.33 - OBSTRUCTIVE SLEEP APNEA (ADULT) (PEDIATRIC) Assessment/Plan OK to change to Prednisone 40mg OD with taper if discharge is anticipated. BD TX VTE prophylaxis OOB to chair if able Contact central supply / OR for new Portex No Pulmonary contraindication for D/C planning Dr Mcadams Problem List - Problems (1) Acute on chronic respiratory failure with hypoxia and hypercapnia Code(s): J96.21 - ACUTE AND CHRONIC RESPIRATORY FAILURE WITH HYPOXIA; J96.22 - ACUTE AND CHRONIC RESPIRATORY FAILURE WITH HYPERCAPNIA (2) COPD Acute exacerbation of chronic obstructive airways disease Code(s): J44.1 - CHRONIC OBSTRUCTIVE PULMONARY DISEASE W (ACUTE) EXACERBATION (3) Chronic diastolic heart failure Code(s): I50.32 - CHRONIC DIASTOLIC (CONGESTIVE) HEART FAILURE (4) Diarrhea Code(s): R19.7 - [place], UNSPECIFIED Qualifiers: Diarrhea type: unspecified type Qualified Code(s): R19.7 - Diarrhea, unspecified (5) Hemoptysis Code(s): R04.2 - HEMOPTYSIS (6) CAD (coronary artery disease) Code(s): I25.10 - ATHSCL HEART DISEASE OF [place] CORONARY ARTERY W/O ANG PCTRS Qualifiers: Coronary Disease-Associated Artery/Lesion type: [place] artery [place] vs. transplanted heart: [place] heart Associated angina: without angina Qualified Code(s): I25.10 - Atherosclerotic heart disease of [place] coronary artery without angina pectoris (7) Chronic diastolic heart failure Code(s): I50.32 - CHRONIC DIASTOLIC (CONGESTIVE) HEART FAILURE (8) History of coronary artery bypass graft Code(s): Z95.1 - PRESENCE OF AORTOCORONARY BYPASS GRAFT (9) History of tracheostomy Code(s): Z98.89 - OTHER SPECIFIED POSTPROCEDURAL STATES * DO NOT USE * (10) Morbid obesity with BMI of 45.0-49.9, adult Code(s): Z68.42 - BODY MASS INDEX (BMI) 45.0-49.9, ADULT (11) Obstructive sleep apnea Code(s): G47.33 - OBSTRUCTIVE SLEEP APNEA (ADULT) (PEDIATRIC)
--- NOTE | 2017-08-13 17:28 | PN ---
Physical Exam: SUBJECTIVE: No acute events overnight. No complaints today. OBJECTIVE: Vital Signs Period Temp Pulse Resp BP Sys/Brandt Pulse Ox Last 24 Hr 98.0 F-99.2 F 57-75 17-20 107-123/41-65 93-95 GENERAL: NAD, awake, alert, and fully oriented, sitting in bed HEENT: EOMI, NELSON, sclera anicteric, MMM NECK: No secretions eminating from trach. XLT noted with R philange taped to trach collar LUNGS: CTA bilaterally, no wheezes, no crackles, no accessory muscle use. HEART: RRR, S1, S2 without murmur ABDOMEN: Soft, obese, nondistended, tympanitic, NT, no guarding or rebound. EXTREMITIES: 2+ DP pulses, warm, well-perfused, no edema. PSYCH: Normal mood, normal affect. SKIN: Warm, dry, no rashes or lesions noted Active Medications Generic Name Dose Route Start Last Admin Trade Name Freq PRN Reason Stop Dose Admin Acetaminophen 650 mg 08/12/17 17:47 Tylenol - PO Q6H PRN FEVER Albuterol/Ipratropium 1 amp 08/12/17 20:00 08/13/17 16:16 Duoneb - NEB 1 amp RQID ABEL Administration Furosemide 40 mg 08/13/17 10:00 08/13/17 10:16 Lasix Injection - IVPUSH 40 mg DAILY ABEL Administration Heparin Sodium (Porcine) 5,000 unit 08/12/17 22:00 08/13/17 13:58 Heparin - SQ 5,000 unit TID ABEL Administration Methylprednisolone Sodium Succinate 40 mg 08/12/17 22:00 08/13/17 10:16 Solu-Medrol - IVPB 40 mg BID ABEL Administration ASSESSMENT/PLAN: 1) Acute COPD exacerbation --Low suspicion for any CHF exacerbation due to most signs being dyspnea with productive cough (consult switched to Dr. Caballero as he has seen pt in past) --Continue Solu-medrol 40mg IVP BID today --Decrease to prednisone 40 daily tomorrow --Continue Duonebs scheduled --Pulmonology on board --Monitoring off ABX; lack of fevers/WBC --Blow-by O2 to collar (fiO2 40%) during day if needed --Will keep Lasix 40mg IVP qdaily 2) Abdominal pain --C diff ruled out (negative tox and Ag) --Cultures negative --Abdominal CT w/ oral contrast w/o significant abnormality --Pt has had this chronic pain for a while --Pt reports having episodes of constipation where he feels tense in RLQ; possible inflammation of bowel wall after constipation episode within the past week --Colace 100mg BID to continue FEN: Fluids: Tolerating PO observe off Electrolyte abnormalities: None today Nutrition: Sodium-controlled PPX: DVT - Heparin SQ GI - None indicated currently Dispo: New trach (Biv[place] XLT size 7) ordered apparently will be at hospital tomorrow; will keep overnight and change tomorrow to discharge; if it does not arrive can discharge patient with follow-up back to hospital to change Case discussed with Dr. Horner and Dr. Abbe Robertson, DO - IM PGY-1 Visit type - Emergency Visit Emergency Visit: No - New Patient This patient is new to me today: No - Critical Care Critical Care patient: No
[2017-08-14] MEDS: HEPARIN NA (PORCINE) 5,000 UNITS/ML 1ML VIAL SQ SCH ×2 (06:42→14:02)
[2017-08-14 07:36] VITALS: TEMP 98.7
[2017-08-14 07:57] LABS: ANION GAP 1 (8-16); CALCIUM 9.3 mg/dL (8.5-10.1); CHLORIDE 93 mmol/L (98-107); CO2 45 mmol/L (21-32); GLUCOSE,RANDOM 105 mg/dL (74-106); SODIUM 139 mmol/L (136-145)
[2017-08-14 08:00] LABS: BLOOD UREA NITROGEN 29 mg/dL (7-18); CREATININE 1.1 mg/dL (0.7-1.3)
[2017-08-14] MEDS: ALBUTEROL SO4 2.5/IPRATROPIUM 0.5 INH SOL 3 ML VIAL.NEB. NEB SCH ×3 (08:27→16:30)
[2017-08-14] MEDS: FUROSEMIDE 40 MG/4 ML INJECTABLE VIAL IVPUSH SCH (09:12)
[2017-08-14] MEDS ORDERED: predniSONE 20 MG TABLET (UD) PO SCH (10:00)
[2017-08-14 14:43] VITALS: BP 108/59; PULSE 72
--- NOTE | 2017-08-14 15:04 | PN ---
Progress Note, Physician History of Present Illness: PULMONARY ALERT,OOB IN CHAIR,SOB IMPROVED - Current Medication List Current Medications: Active Medications Acetaminophen (Tylenol -) 650 mg PO Q6H PRN PRN Reason: FEVER Albuterol/Ipratropium (Duoneb -) 1 amp NEB RQID [facility] Last Admin: 08/14/17 11:53 Dose: 1 amp Furosemide (Lasix Injection -) 40 mg IVPUSH DAILY [facility] Last Admin: 08/14/17 09:12 Dose: 40 mg Heparin Sodium (Porcine) (Heparin -) 5,000 unit SQ TID [facility] Last Admin: 08/14/17 14:02 Dose: 5,000 unit Prednisone (Deltasone -) 40 mg PO DAILY [facility] Last Admin: 08/14/17 09:12 Dose: 40 mg - Objective Vital Signs: Vital Signs Temperature 98.7 F 08/14/17 14:42 Pulse Rate 72 08/14/17 14:42 Respiratory Rate 20 08/14/17 14:42 Blood Pressure 108/59 08/14/17 14:42 O2 Sat by Pulse Oximetry (%) 97 08/14/17 09:00 Constitutional: Yes: Well Nourished, Calm, Obese Eyes: Yes: WNL HENT: Yes: WNL Neck: Yes: WNL Cardiovascular: Yes: Regular Rate and Rhythm, S1, S2 Respiratory: Yes: Diminished Gastrointestinal: Yes: Normal Bowel Sounds, Soft Extremities: Yes: WNL Edema: No Labs: CBC, BMP 08/12/17 05:30 08/14/17 06:00 INR, PTT INR 1.09 (0.82-1.09) 08/09/17 15:15 Assessment/Plan Problem List - Problems (1) Acute on chronic respiratory failure with hypoxia and hypercapnia Code(s): J96.21 - ACUTE AND CHRONIC RESPIRATORY FAILURE WITH HYPOXIA; J96.22 - ACUTE AND CHRONIC RESPIRATORY FAILURE WITH HYPERCAPNIA (2) COPD Acute exacerbation of chronic obstructive airways disease Code(s): J44.1 - CHRONIC OBSTRUCTIVE PULMONARY DISEASE W (ACUTE) EXACERBATION (3) Chronic diastolic heart failure Code(s): I50.32 - CHRONIC DIASTOLIC (CONGESTIVE) HEART FAILURE (4) Diarrhea Code(s): R19.7 - [place], UNSPECIFIED Qualifiers: Diarrhea type: unspecified type Qualified Code(s): R19.7 - Diarrhea, unspecified (5) Hemoptysis Code(s): R04.2 - HEMOPTYSIS (6) CAD (coronary artery disease) Code(s): I25.10 - ATHSCL HEART DISEASE OF [place] CORONARY ARTERY W/O ANG PCTRS Qualifiers: Coronary Disease-Associated Artery/Lesion type: [place] artery [place] vs. transplanted heart: [place] heart Associated angina: without angina Qualified Code(s): I25.10 - Atherosclerotic heart disease of [place] coronary artery without angina pectoris (7) Chronic diastolic heart failure Code(s): I50.32 - CHRONIC DIASTOLIC (CONGESTIVE) HEART FAILURE (8) History of coronary artery bypass graft Code(s): Z95.1 - PRESENCE OF AORTOCORONARY BYPASS GRAFT (9) History of tracheostomy Code(s): Z98.89 - OTHER SPECIFIED POSTPROCEDURAL STATES * DO NOT USE * (10) Morbid obesity with BMI of 45.0-49.9, adult Code(s): Z68.42 - BODY MASS INDEX (BMI) 45.0-49.9, ADULT (11) Obstructive sleep apnea Code(s): G47.33 - OBSTRUCTIVE SLEEP APNEA (ADULT) (PEDIATRIC) Assessment/Plan Prednisone BD TX O2 via Trach collar Do not suspect PNA: changes on CT appears like atelectasis and pleural effusions : Monitor off Rocephin VTE prophylaxis OOB to chair DR NAVARRETE Problem List - Problems (1) Acute on chronic respiratory failure with hypoxia and hypercapnia Code(s): J96.21 - ACUTE AND CHRONIC RESPIRATORY FAILURE WITH HYPOXIA; J96.22 - ACUTE AND CHRONIC RESPIRATORY FAILURE WITH HYPERCAPNIA (2) COPD Acute exacerbation of chronic obstructive airways disease Code(s): J44.1 - CHRONIC OBSTRUCTIVE PULMONARY DISEASE W (ACUTE) EXACERBATION (3) Chronic diastolic heart failure Code(s): I50.32 - CHRONIC DIASTOLIC (CONGESTIVE) HEART FAILURE (4) Diarrhea Code(s): R19.7 - [place], UNSPECIFIED Qualifiers: Diarrhea type: unspecified type Qualified Code(s): R19.7 - Diarrhea, unspecified (5) Hemoptysis Code(s): R04.2 - HEMOPTYSIS (6) CAD (coronary artery disease) Code(s): I25.10 - ATHSCL HEART DISEASE OF [place] CORONARY ARTERY W/O ANG PCTRS Qualifiers: Coronary Disease-Associated Artery/Lesion type: [place] artery [place] vs. transplanted heart: [place] heart Associated angina: without angina Qualified Code(s): I25.10 - Atherosclerotic heart disease of [place] coronary artery without angina pectoris (7) Chronic diastolic heart failure Code(s): I50.32 - CHRONIC DIASTOLIC (CONGESTIVE) HEART FAILURE (8) History of coronary artery bypass graft Code(s): Z95.1 - PRESENCE OF AORTOCORONARY BYPASS GRAFT (9) History of tracheostomy Code(s): Z98.89 - OTHER SPECIFIED POSTPROCEDURAL STATES * DO NOT USE * (10) Morbid obesity with BMI of 45.0-49.9, adult Code(s): Z68.42 - BODY MASS INDEX (BMI) 45.0-49.9, ADULT (11) Obstructive sleep apnea Code(s): G47.33 - OBSTRUCTIVE SLEEP APNEA (ADULT) (PEDIATRIC)
--- NOTE | 2017-08-14 15:42 | PN ---
Teaching Attending Note Name of Resident: Elvin Robertson ATTENDING PHYSICIAN STATEMENT I saw and evaluated the patient. I reviewed the resident's note and discussed the case with the resident. I agree with the resident's findings and plan as documented. SUBJECTIVE: No fever or chills. No abd pain, no fever or chills , breathing is better . OBJECTIVE: NAD , pleasant . Trach collar on CV: RRR Lungs: CTAB , good air entry Ext: no edema A/P : 59 y/o man with h/o SUDEEP, COPD , D CHF, trach , P a fib, who presented with SOB and was found to have acute COPD exacerbation a nd acute D CHF 1- Acute hypoxic resp failure due to acute diastolic CHF exacerbation and acute COPD exacerbation : Improved - prednisone taper - switch to PO lasix - f/u with pulm and card as out pt - cont albuterol, Duo-Nebs , and advais as out pt 2- h/o PA fib: - not on Ac due to h/o L GI bleed - f/u with Card 3- Abd pain and diarrhea : resolved. no acute abdominal findings. c diff Neg Patient is a 59 year old male with morbid obesity, SUDEEP, COPD, Trach who presents with diarrhea x 2 days , no fever or chills, positive for cough. Abdominal pain for over 1 year with worsening pain the past 2 days # Acute COPD/chf diastolic exacerbation Pulmonary consult . nebulizer tx, Solumedrol IV 40mg bid , pulmonary on the case. # Acute abdominal pain imporved .CT of abdomen without contrast ; no acute pathology , as per , no surgical intervention and patient has this pain for over 6 months , culture is negative for cdiff and patient has no diarrhea today . #tracheostomy with Fi02 40% tracheo collar, needs to be changed # Hx of HTN continue Lasix 40mg IV DVT Px: heparin Patient is a 59 year old male with morbid obesity, SUDEEP, COPD, Trach who presents with diarrhea x 2 days , no fever or chills, positive for cough. Abdominal pain for over 1 year with worsening pain the past 2 days # Acute COPD/chf diastolic exacerbation Pulmonary consult . nebulizer tx, Solumedrol IV 40mg bid , pulmonary on the case. # Acute abdominal pain imporved .CT of abdomen without contrast ; no acute pathology , as per , no surgical intervention and patient has this pain for over 6 months , culture is negative for cdiff and patient has no diarrhea today . #tracheostomy with Fi02 40% tracheo collar, needs to be changed # Hx of HTN continue Lasix 40mg IV DVT Px: heparin ASSESSMENT AND PLAN:
--- NOTE | 2017-08-14 18:13 | DS ---
Physical Exam: SUBJECTIVE: Patient seen and examined OBJECTIVE: Vital Signs Period Temp Pulse Resp BP Sys/Brandt Pulse Ox Last 24 Hr 98.7 F-98.9 F 59-72 20-21 104-120/52-64 97 PHYSICAL EXAM GENERAL: The patient is awake, alert, and fully oriented, in no acute distress. HEAD: Normal with no signs of trauma. EYES: PERRL, extraocular movements intact, sclera anicteric, conjunctiva clear. ENT: Ears normal, nares patent, oropharynx clear without exudates, moist mucous membranes. NECK: Trachea midline, full range of motion, supple. LUNGS: Breath sounds equal, clear to auscultation bilaterally, no wheezes, no crackles, no accessory muscle use. HEART: Regular rate and rhythm, S1, S2 without murmur, rub or gallop. ABDOMEN: Soft, nontender, nondistended, normoactive bowel sounds, no guarding, no rebound, no hepatosplenomegaly, no masses. EXTREMITIES: 2+ pulses, warm, well-perfused, no edema. NEUROLOGICAL: Cranial nerves II through XII grossly intact. Normal speech, gait not observed. PSYCH: Normal mood, normal affect. SKIN: Warm, dry, normal turgor, no rashes or lesions noted. LABS Laboratory Results - last 24 hr 08/14/17 06:00 Sodium 139 Potassium 5.0 Chloride 93 L Carbon Dioxide 45 H Anion Gap 1 L BUN 29 H Creatinine 1.1 Random Glucose 105 Calcium 9.3 HOSPITAL COURSE: Date of Admission:08/09/17 Date of Discharge: 08/14/17 Discharge Summary Reason For Visit: COPD; CHRONIC DIASTOLIC HEART FAILURE Current Active Problems Acute exacerbation of congestive heart failure (Acute) COPD Acute exacerbation of chronic obstructive airways disease (Acute) Demand ischemia (Acute) Abdominal pain (Chronic) Chronic diastolic heart failure (Chronic) Condition: Improved - Instructions Diet, Activity, Other Instructions: You were seen here for an acute attack of your COPD. Because your heart is weak you also experienced increased fluid to build up spurred on by your COPD attack. You were given water pills to take the extra fluid off and given steroids to control your COPD. You were ordered a new trach and it will be delivered to us in a few days. We will notify you about your new trach and you should have it changed by Dr. Blankenship. MEDICATIONS: You will be given a steroid taper to continue while you are recovering. It is VERY IMPORTANT to take your medications as they have been prescribed below: 08/15/17 Prednisone 40mg ONCE by mouth (4 tabs) 08/16/17 Prednisone 40mg ONCE by mouth (4 tabs) 08/17/17 Prednisone 20mg ONCE by mouth (2 tabs) 08/18/17 Prednisone 20mg ONCE by mouth (2 tabs) 08/20/17 Prednisone 20mg ONCE by mouth (2 tabs) 08/21/17 Prednisone 10mg ONCE by mouth (1 tab) 08/22/17 Prednisone 10mg ONCE by mouth (1 tab) As above, your new trach has been ordered; continue to keep your current one tied Please continue taking your Lasix 40mg DAILY as this will help keep fluid from building up. Continue 3L oxygen mask blow-by to trach site while pt is resting and ambulating FOLLOW-UP: You are being sent to [facility] and will be seen by the doctors there and continue to follow with Dr. Pastrana --You will need a CAT scan of an adrenal nodule in 1 year to make sure this nodule is stable and not something more concerning In addition you should follow-up with Dr. Mcadams in 1-2 weeks to follow your COPD You should make an appointment with Dr. Blankenship in the next week to have your tracheostomy changed. We will notify you when we have your new one and will follow-up where you can get it. You should also see Dr. Caballero in 1 week to follow your congestive heart failure and assess your medication needs. He may also need to keep you on a heart monitor for a temporary time, however he will explain futher if this is needed. Referrals: Darrick Pastrana MD [Primary Care Provider] - Soy Caballero MD [Staff Physician] - Angel Mcadams MD [Staff Physician] - Elvin Blankenship MD [Staff Physician] - Disposition: [facility] - Home Medications Comprehensive Discharge Medication List: Ambulatory Orders Albuterol Sulfate Inhaler - [Ventolin HFA Inhaler -] 1 - 2 inh PO QID 08/29/16 Meloxicam 0 mg PO DAILY 08/29/16 Potassium Chloride 0 meq PO DAILY 08/29/16 Salmeterol/Fluticasone [Advair 250Mcg/50Mcg -] 1 inh IH DAILY 08/29/16 Tamsulosin HCl [Flomax] 0.4 mg PO DAILY 08/29/16 Miscellaneous Medical Supply [Outpatient Order] 1 each MONTHLY #1 misc Albuterol 2.5/Ipratropium 0.5 [Duoneb -] 1 amp NEB RQID amp 08/14/17 Furosemide [Lasix -] 40 mg PO DAILY tablet 08/14/17 Prednisone See Taper PO DAILY #21 tablet 08/14/17 - Discharge Referral Referred to [facility] No
[2017-08-15] MEDS ORDERED: FUROSEMIDE 40 MG TABLET (FP) PO SCH (10:00)
== END 2017-08-14 18:40 | DRG 189 ==
LOC: JER 13:15 → JERBED 17:03 → J4W 08-10 00:55 → J6S 08-12 17:36
PROVIDERS: ADMIT Internal Medicine; ATTEND Internal Medicine
PROC: 3E0F7GC Introduction of Other Therapeutic Substance into Respiratory Tract, Via Natural or Artificial Opening (ICD-10-PCS; principal; 2017-08-09)
DX: J96.21 Acute and chronic respiratory failure with hypoxia (principal); I50.31 Acute diastolic (congestive) heart failure; J44.1 Chronic obstructive pulmonary disease with (acute) exacerbation; Z68.42 Body mass index [BMI] 45.0-49.9, adult; I24.8 Other forms of acute ischemic heart disease; J98.11 Atelectasis; N40.0 Benign prostatic hyperplasia without lower urinary tract symptoms; J96.22 Acute and chronic respiratory failure with hypercapnia; I25.10 Atherosclerotic heart disease of native coronary artery without angina pectoris; K57.90 Diverticulosis of intestine, part unspecified, without perforation or abscess without bleeding; K59.00 Constipation, unspecified; G47.33 Obstructive sleep apnea (adult) (pediatric); E66.01 Morbid (severe) obesity due to excess calories; I48.0 Paroxysmal atrial fibrillation; Z93.0 Tracheostomy status; D35.00 Benign neoplasm of unspecified adrenal gland; I11.0 Hypertensive heart disease with heart failure; R19.7 Diarrhea, unspecified; Z86.711 Personal history of pulmonary embolism; Z95.1 Presence of aortocoronary bypass graft; Z99.81 Dependence on supplemental oxygen
CPT/HCPCS: 36415; 71045-TC-FY; 74160-TC; 74176-TC; 80048; 80053; 81003; 81015; 82550; 82553; 82803; 83605; 83735; 83880; 84100; 84484; 85025; 85610; 85730; 87040; 87086; 87324; 87449; 93005; 93010; 93306-TC; 94640; 94761; 97116-GP; 97162-GP; 99283-25; J1644; J7620